=== PATIENT | female | born 1955 | race Caucasian/White ===

== ENCOUNTER 2018-05-22 10:39 | Inpatient (IN) ==
--- NOTE | 2018-05-22 15:29 | Internal Med History&Physical ---
Date of Encounter: 05/22/18 Time of Encounter: 15:15 Internal Medicine - H&P: HPI Chief complaint: Shortness of breath Admitted From: Home History of present illness: Ms. Moreno is a 63 year old female with past meidcal history of non wave Q IA, CHF, prior hx of PNA, current smoker 1/2PPD to 1PPD, COPD, chronic venous insufficiency, who presents with SOB and altered mental status. Pt is an overall poor historian. Unable to determine at this time if she has baseline dementia. Pt was initially evaluated at [facility]. She was brought in by her son. Pt states her son lives with her in her own home. HEr family was not present kduring my evaluation but they did report to the ED at [facility] that they had been trying to convince the patien to come to the hospital for about 2 -3 days. The patient had reported non-productive cough and had been complaining of progressive SOB. According to EMS who picked the pt up at home, pt was found in poor living conditions. The house was apparently extremely dirty and appeared unkept. Pt had to be given a bath by hospital staff. Pt denies fever but does report chills. Pt admits to nausea but denies vomiting. Nursing staff states pt is having frequent stools and her buttock is raw from runny diarrhea. Pt has been seen at wound clinic for chronic LE wounds but pt reports wound care center does not know about the wound on her buttock. Family reports that pt has been sitting on on the couch since Last tuesday, 05/16. Pt states she cannot lay falt in bed due to difficulty breathing. CODE STATUS: FULL but needs verified. At [facility] ED WBC 10.1, hgb 13.3, hct 43., plt 190. PT 13.7, INR 1.2. Na 131, K 5.3, CO2 31, glucose 95. Troponin 1.22 ABG PH 7.37, pCO2 49, pO2 63, HCO3 28, Oxygen saturation 91% CXR IMPRESSION: Bilateral airspace disease is suspicious for pneumonia. Past Med Surg Social Fam HX - Past Medical History Medical history: arthritis, cancer, COPD, GERD, hypertension, other Additional medical history: charcot Psychiatric history: anxiety - Past Surgical History Surgical History: angioplasty/stent, hysterectomy, other Additional surgical history: removal of melanoma, left breast tumor removal at age 12. heart cath - Social History Smoking Status: Current every day smoker Smokeless Tobacco Status: No Alcohol use: none Drug use: none - Family History Mother Family Member Ethnicity: Non- Living Status: Hx Family Cardiac Disorders: Yes Internal Medicine - H&P: Meds Albuterol Sulfate [Ventolin Hfa] 108 mcg IH Q6H PRN 10/09/15 [History] Aspirin Enteric Coated [Aspirin EC] 81 mg PO DAILY 10/09/15 [History] Calcium Carbonate/Vitamin D3 [Calcium 500 + D Tablet] 1 each PO BID 10/09/15 [ History] Furosemide [Lasix] 20 mg PO BIDDIURETIC 10/09/15 [History] Gabapentin [Neurontin] 100 mg PO TID 10/09/15 [History] Lisinopril [Zestril] 5 mg PO DAILY 10/09/15 [History] Loratadine [Claritin] 10 mg PO DAILY 10/09/15 [History] Lovastatin [Mevacor] 20 mg PO HS 10/09/15 [History] Metoprolol [Lopressor] 50 mg PO BID 10/09/15 [History] Montelukast [Singulair] 10 mg PO DAILY 10/09/15 [History] Multivitamin [Multi-Day Vitamins] 1 each PO DAILY 10/09/15 [History] Naproxen Sodium [Naproxen Sodium Cr] 375 mg PO BID 10/09/15 [History] Omeprazole [PriLOSEC] 20 mg PO DAILY 10/09/15 [History] Potassium Chloride [Klor-Con Sprinkle] 20 meq PO DAILY 10/09/15 [History] Tramadol HCl [Tramadol HCl ER] 50 mg PO TID PRN 10/09/15 [History] Nitroglycerin [Nitrostat] 0.4 mg SL AD 01/30/16 [History] 3 Allergy/AdvReac Type Severity Reaction Status Date / Time No Known Allergies Allergy Verified 05/22/18 08:39 All Systems PM: A 10-system review of systems was performed and is negative for pertinent findings except as documented above in the HPI. - Constitutional Vitals: Temp Pulse Resp BP Pulse Ox 97.5 F L 96 18 134/81 90 05/22/18 12:44 05/22/18 12:44 05/22/18 12:44 05/22/18 12:44 05/22/18 12:44 General appearance: Present: A&O X 2, morbidly obese - Head Head exam: Present: atraumatic, normocephalic - Eye Eye exam: Present: PERRL, conjuntiva pink, sclera anicteric Pupils: Present: PERRL - Neck Neck exam general surgery: Present: supple, trachea midline. Absent: lymphadenopathy - Respiratory Respiratory exam: Present: wheezes. Absent: accessory muscle use, rales, rhonchi Additional comments: expiratory wheezes B/L - Cardiovascular Cardiovascular exam: Present: RRR, +S1, +S2. Absent: diastolic murmur, gallop, rubs, systolic murmur - GI/Abdominal GI/Abdominal exam: Present: normal bowel sounds, soft, no peritoneal signs. Absent: distended, tenderness Additional comments: unable to adequately assess for organomegaly due to rotund abd - Extremities Exam Extremities exam: Present: pedal edema, warm, radial pulses palpable and symmetrical. Absent: calf tenderness, cyanotic - Neurological Exam Neurological exam: Present: CN II-XII intact, oriented X3, no focal deficits. Absent: pronater drift, facial droop, speech deficit - Skin Skin exam: Present: dry, intact - Assessment and plan (1) Bilateral pneumonia Current Visit: Yes Status: Acute Assessment and plan: Will place on Zithromax and Rocephin. Will check sputum culture if patient is able to give a sample. Chest x ray IMPRESSION: Bilateral airspace disease is suspicious for pneumonia. Qualifiers: Qualified Code(s): J18.9 - Pneumonia, unspecified organism (2) Elevated troponin Current Visit: Yes Status: Acute Assessment and plan: Will cycle troponin. Cse discussed with cardiology and agree with heparin for now. Qill review home meds when med rec completed. Daily ASA, prn Nitro, and oxygen for now. Will likely add beta channing and ASIA inhibitor if pt not currently on it. (3) CHF (congestive heart failure) Current Visit: No Status: Acute Assessment and plan: possibly in mild exacerbation as pt is reporting orthopnea and has increased B/ L LE edema. EF unknown at this time. Will check echo. Will give one time dose of Lasix. Will monitor fluid status Qualifiers: Qualified Code(s): I50.9 - Heart failure, unspecified (4) Hyperkalemia Current Visit: Yes Status: Acute Assessment and plan: ill recheck following administration of Lasix. Will monitor. (5) Hyponatremia Current Visit: Yes Status: Acute Assessment and plan: Will recheck and monitor. (6) Chronic venous hypertension with ulcer involving both sides Current Visit: No Status: Chronic Assessment and plan: Chronic venous stasis. Will consult wound care for help with management. (7) Decubitus ulcer of buttock, stage 2 Current Visit: No Status: Acute Assessment and plan: Wound care consult Qualifiers: Qualified Code(s): L89.302 - Pressure ulcer of unspecified buttock, stage 2 (8) Diarrhea Current Visit: Yes Status: Acute Assessment and plan: Significance unclear. Pt was apparently on stool softeners. Will hold softeners and send stool for C diff. Qualifiers: Qualified Code(s): R19.7 - Diarrhea, unspecified - Time Spent With Patient Total time spent is greater than 50% in coordination of care (as documented) at patient's floor/unit and/or counseling patient: 25 - 35 minutes
[2018-05-22] MEDS ORDERED: Furosemide 40 MG/4 ML VIAL IVP ONE (15:36)
[2018-05-22] MEDS ORDERED: *HR* Heparin 5,000 UNIT/ML VIAL IVP PRN (15:36)
[2018-05-22] MEDS ORDERED: *HR* Heparin 5,000 UNIT/ML VIAL IVP ONE (15:36)
[2018-05-22] MEDS ORDERED: Nitroglycerin 0.4 MG TAB.SUBL SL PRN (15:36)
[2018-05-22] MEDS ORDERED: Naloxone 0.4 MG/ML INJ IVP PRN (15:36)
[2018-05-22] MEDS ORDERED: Azithromycin 500 MG in D5% in Water 250 ML IVPB SCH (16:00)
[2018-05-22] MEDS: cefTRIAXone 1,000 MG in Water for inj. (sterile) 20 ML 10 ML IVP SCH (16:48)
[2018-05-22] MEDS: Heparin 25,000 UNIT/500 ML D5W 25,000 UNIT/500 ML BAG IVC SCH (16:52)
[2018-05-22 16:57] LABS: Albumin 3.1 g/dL (3.5-5.7); Albumin/Globulin Ratio 0.9 (1.1-2.2); Bilirubin,Direct 0.3 mg/dL (0.0-0.2); Bilirubin,Indirect 0.4 mg/dL (0.0-1.2); Bilirubin,Total 0.7 mg/dL (0.3-1.0); Globulin 3.6 g/dL (2.4-3.5); Magnesium 1.6 mg/dL (1.6-2.6); Total Protein 6.7 g/dL (6.4-8.9)
[2018-05-22 17:10] LABS: Thyroid Stimulating Hormone 1.569 mcIU/mL (0.340-5.600)
[2018-05-22] MEDS ORDERED: Ipratropium 1 PUFF INHALER IH PRN (18:06)
[2018-05-22 18:11] LABS: Estimated Average Glucose 131 mg/dl; Hemoglobin A1C 6.2 %
[2018-05-22] MEDS: Ipratropium/Albuterol Neb 3 ML IH SCH (23:11)
[2018-05-23] MEDS: *HR* Heparin 5,000 UNIT/ML VIAL IVP PRN (00:33)
[2018-05-23 01:38] LABS: ABG Base Excess 5 mEq/L (-2 to 3); ABG HCO3 34 mEq/L (21-27); ABG Oxygen Saturation 99 % (95-98); ABG PCO2 66 mmHg (35-45); ABG PH 7.32 pH Units (7.32-7.45); ABG PO2 136 mmHg (85-104); ABG TCO2 36 mEq/L (20-26)
[2018-05-23] MEDS: Ipratropium/Albuterol Neb 3 ML IH SCH ×4 (04:24→21:50)
[2018-05-23 06:29] LABS: Basophils % 0.2 %; Hematocrit 42.7 % (35.3-44.9); Hemoglobin 13.3 g/dL (11.5-15.4); Immature Granulocytes % 0.4 % (0-4); Lymphocytes # 0.7 K/mcL (0.6-4.6); Lymphocytes % 5.9 %; Mean Corpuscular HGB Conc 31.1 g/dL (31.6-35.5); Mean Corpuscular Hemoglobin 25.2 pg (28.0-33.3); Mean Corpuscular Volume 80.9 fL (83.0-100.0); Mean Platelet Volume 9.7 fL (9.4-12.4); Monocytes # 0.6 K/mcL (0.0-1.3); Monocytes % 5.4 %; Nucleated Red Blood Cells 0.2 /100 WBC (0); Platelet Count 159 K/mcL (140-400); Red Blood Count 5.28 M/mcL (3.82-4.97); Red Cell Distribution Width 19.7 % (11.5-14.5); Segmented Neutrophils % 88.1 %
[2018-05-23 06:54] LABS: BUN/Creatinine Ratio 21 (6-26); Blood Urea Nitrogen 19 mg/dL (8-23); Calcium 8.6 mg/dL (8.6-10.3); Carbon Dioxide 29 mEq/L (23-29); Chloride 97 mEq/L (98-107); Chol/HDL Ratio 2.9 (0-4.9); Cholesterol 84 mg/dL (< 200); Glucose 118 mg/dL (70-105); HDL Cholesterol 29 mg/dL (40-59); LDL Cholesterol,Calculated 40 mg/dL (0-99); Osmolality,Calculated 279 (280-300); Potassium 4.3 mEq/L (3.5-5.1); Sodium 133 mEq/L (136-145); Triglycerides 75 mg/dL (< 150); eGFR For Non-African Americans > 60 (> 60)
[2018-05-23] MEDS ORDERED: cefTRIAXone 1,000 MG in Water for inj. (sterile) 20 ML 10 ML IVP SCH (09:00)
[2018-05-23] MEDS ORDERED: Perflutren Lipid Microsphere 1.3 ML in 0.9 % Sodium Chloride 8.7 ML IVP ONE (09:40)
--- NOTE | 2018-05-23 09:46 | Cardiology Consult Note ---
Date of Encounter: 05/23/18 Time of Encounter: 09:00 Assessment and Plan (1) Elevated troponin Current Visit: Yes Status: Acute Peak troponin 1.43 with downward trend in the setting of bilateral PNA and possible sepsis. NSTEMI I vs. II. No ischemic ECG changes noted. Presently not a candidate for [facility] due to mental status--bipap dependent, minimally responsive. Continue heparin gtt for at least 48 hours; add statin, asa, and BB. Check echocardiogram. Not presently a candidate for cardiac rehab. Will continue to follow. (2) Chronic venous hypertension with ulcer involving both sides Current Visit: Yes Status: Chronic (3) Bilateral pneumonia Current Visit: Yes Status: Acute On IV atb, mgmt per hospitalist. Qualifiers: Pneumonia type: due to unspecified organism Lung location: unspecified part of lung Qualified Code(s): J18.9 - Pneumonia, unspecified organism Discussion w patient/family: The assessment and plan as outlined above was discussed with the patient and/or family members who expressed understanding and agreement. All questions were answered. Thank you for involving us in the care of your patient. Please call with any questions. The patient will be discussed and reviewed with Dr. Carlisle; changes to be made accordingly. History of Present Illness Consult date: 05/23/18 Requesting physician: Crystal Ernst Consult reason: Elevated troponin Chief complaint: AMS History of present illness: Ms. Moreno is a 63 year old female with PMHx significant of NC without intervention, tobacco abuse, COPD, MANSO[place], and Charcot-andres tooth disease who presented to [facility] as transfer from [place] ED due to reported AMS. Unable to obtain HPI or PMH due to patient mental status, currently Bipap dependent. Information obtained from eCW, ED records, and bedside RN. Reportedly patient had been on the couch since Tuesday and not moving well so family called EMS. Per H&P, patient resides in very poor living conditions and was dirty and unkept upon arrival. She is noted to have chronic non-healing wounds to bilateral lower extremities--follows wound care as outpatient. Per bedside RN, patient has 15+ decubitis ulcers on coccyx. Prior CV testing: [facility] 2003: minimal, non-obstructive CAD TTE 01/2014: LVEF 60%, mild LVDD, mild-moderate MN, moderate PH, mild segmental LV systolic dysfunction (apical inferior, mid inferior, basal inferior , and mid inferior lateral smith were hypokinetic) Past Med Surg Social Fam HX - Past Medical History Attestation: Yes The following information was validated with the patient. Source: patient Medical history: arthritis, cancer, COPD, GERD, hypertension Additional medical history: charcot Psychiatric history: anxiety - Past Surgical History Surgical History: hysterectomy, other Additional surgical history: removal of melanoma, left breast tumor removal at age 12. heart cath - Social History Smoking Status: Current every day smoker Smokeless Tobacco Status: No Alcohol use: none Drug use: none - Family History Mother Family Member Ethnicity: Non- Living Status: Hx Family Cardiac Disorders: Yes Medications and Allergies Albuterol Sulfate [Ventolin Hfa] 108 mcg IH Q6H PRN 10/09/15 [History] Aspirin Enteric Coated [Aspirin EC] 81 mg PO DAILY 10/09/15 [History] Calcium Carbonate/Vitamin D3 [Calcium 500 + D Tablet] 1 each PO BID 10/09/15 [ History] Gabapentin [Neurontin] 100 mg PO TID 10/09/15 [History] Lisinopril [Zestril] 5 mg PO DAILY 10/09/15 [History] Loratadine [Claritin] 10 mg PO DAILY 10/09/15 [History] Lovastatin [Mevacor] 20 mg PO HS 10/09/15 [History] Metoprolol [Lopressor] 50 mg PO BID 10/09/15 [History] Montelukast [Singulair] 10 mg PO DAILY 10/09/15 [History] Multivitamin [Multi-Day Vitamins] 1 each PO DAILY 10/09/15 [History] Naproxen Sodium [Naproxen Sodium Cr] 375 mg PO BID 10/09/15 [History] Omeprazole [PriLOSEC] 20 mg PO DAILY 10/09/15 [History] Potassium Chloride [Klor-Con Sprinkle] 20 meq PO DAILY 10/09/15 [History] Nitroglycerin [Nitrostat] 0.4 mg SL AD 01/30/16 [History] Bumetanide [Bumetanide] 0.5 mg PO BID 05/23/18 [History] Furosemide [Lasix] 40 mg PO DAILY 05/23/18 [History] Tiotropium Cecilia [Spiriva Respimat] 2 puff IH DAILY 05/23/18 [History] Tramadol HCl [Ultram] 50 mg PO TID PRN 05/23/18 [History] 3 Allergy/AdvReac Type Severity Reaction Status Date / Time No Known Allergies Allergy Verified 05/22/18 08:39 All Systems Review: The remainder of the systems were reviewed and are negative - Cardiovascular Cardiovascular: as per HPI Physical Examination Vital Signs, Last 4 Hours Temp Pulse Resp BP Pulse Ox 05/23/18 07:25 98.3 F 77 16 118/80 94 General: Other (minimal responsive) HEENT: Atraumatic, Normocephaly Cardiac: Reg Rate and Rhythm, Normal S1 and S2 Lungs: Other (coarse/wheezes--anterior only) Neuro: Other (minimally responsive, on bipap) Abdomen: Soft Extremities: Other (multiple wounds on bilateral lower extremities--open/redness /+3 edema. ) Other: reported (did not observe) x15 + sacral decubitis ulcer Results 05/23/18 06:17 05/23/18 06:17 Lab Results 05/22/18 05/22/18 05/22/18 16:05 16:05 22:28 WBC Hgb Hct Plt Count Sodium Potassium Chloride Carbon Dioxide BUN Creatinine Glucose Calcium Magnesium 1.6 Total Bilirubin 0.7 AST 25 ALT 19 Alkaline Phosphatase 89 Troponin I 1.43 H* 1.18 H* TSH 1.569 05/23/18 05/23/18 05/23/18 06:17 06:17 06:17 WBC 11.4 H Hgb 13.3 Hct 42.7 Plt Count 159 Sodium 133 L Potassium 4.3 Chloride 97 L Carbon Dioxide 29 BUN 19 Creatinine 0.92 Glucose 118 H Calcium 8.6 Magnesium Total Bilirubin AST ALT Alkaline Phosphatase Troponin I 0.87 H* TSH Active Medications Acetaminophen (Tylenol) 500 mg PO Q6HR PRN PRN Reason: Mild Pain Stop: 11/21/18 15:37 Albuterol/Ipratropium (Duoneb) 3 ml IH QIDR [facility] Stop: 11/21/18 23:01 Last Admin: 05/23/18 04:24 Dose: 3 ml Aspirin (Aspirin) 81 mg PO DAILY [facility] Stop: 11/22/18 09:01 Last Admin: 05/23/18 09:56 Dose: 81 mg Heparin Sodium (Porcine) (Heparin) 4,000 unit IVP Q6HR PRN PRN Reason: SEE COMMENTS Stop: 11/21/18 15:37 Heparin Sodium (Porcine) (Heparin) 2,000 unit IVP Q6H PRN PRN Reason: SEE COMMENTS Stop: 11/21/18 15:37 Last Admin: 05/23/18 00:33 Dose: 2,000 unit Heparin Sodium/Dextrose (Heparin 25,000 Unit/500 Ml D5w) 25,000 unit in 500 mls @ 19.432 mls/hr IVC .Q24H ROSA; 7 UNIT/KG/HR PRN Reason: Protocol Stop: 11/21/18 15:46 Last Titration: 05/23/18 06:41 Dose: 9 unit/kg/hr, 24.984 mls/hr Azithromycin 500 mg/ Dextrose 250 mls @ 252 mls/hr IVPB Q24H [facility]A Stop: 11/22/18 12:01 Ceftriaxone Sodium 1,000 mg/ (Sterile Water) 10 mls @ 600 mls/hr IVP Q24H [facility] Stop: 11/21/18 13:01 Last Infusion: 05/22/18 16:53 Dose: Infused Ipratropium Cecilia (Atrovent Inhaler) 2 puff IH Q2HR PRN PRN Reason: Shortness Of Breath/Wheezing Stop: 11/21/18 18:07 Naloxone HCl (Narcan) 0.4 mg IVP Q2MIN PRN PRN Reason: SEE COMMENTS Stop: 11/21/18 15:37 Nicotine (Nicoderm) 21 mg TD DAILY ROSA PRN Reason: Protocol Stop: 11/22/18 09:01 Last Admin: 05/23/18 09:57 Dose: 21 mg Nitroglycerin (Nitroglycerin) 0.4 mg SL Q5MIN PRN PRN Reason: Chest Pain Stop: 11/21/18 15:37 Prednisone (Prednisone) 40 mg PO DAILY [facility] Stop: 11/22/18 09:01 Last Admin: 05/23/18 09:56 Dose: 40 mg - Imaging and Cardiology Echo: report reviewed Cardiac cath: report reviewed Other Results: 12 hour tele: avg HR 83 SR. - EKG Interpretation EKG results cardiology: personally reviewed Consult Discharge Plan - Plan Referrals: Isatu Shultz, JOEY [Primary Care Provider] -
[2018-05-23] MEDS: Aspirin 81 MG TAB.CHEW PO SCH (09:56)
[2018-05-23] MEDS: predniSONE 20 MG TABLET PO SCH (09:56)
[2018-05-23] MEDS: Nicotine 21 MG PATCH.TD24 TD SCH (09:57)
[2018-05-23] MEDS ORDERED: Furosemide 20 MG/2 ML VIAL IVP SCH (12:15)
[2018-05-23] MEDS: Azithromycin 500 MG in D5% in Water 250 ML IVPB SCH (12:25)
[2018-05-23] MEDS: cefTRIAXone 1,000 MG in Water for inj. (sterile) 20 ML 10 ML IVP SCH (12:26)
[2018-05-23] MEDS ORDERED: Isovue-370 500 ML INFUS..BTL IV ONE (12:32)
--- NOTE | 2018-05-23 13:28 | Event Note ---
Date of Encounter: 05/23/18 Time of Encounter: 13:00 - Cardiology Event Note Reviewed TTE results with Dr. Pace (see below). Given RV dilation and RV pressure overload, recommend CTA to r/o PE. High clinical suspicion given presenting symptoms. Continue heparin gtt for now. Discussed and reviewed with Dr. Peters (primary service) who will order CTA and f /u with results. Echocardiogram 05/23/18 15:36 Impressions: Technically challenging due to body habitus and clinical status. LVEF 60-65%. Definity echo contrast was used. Atypical septal motion - D shaped septum in early diastole. Mild left ventricular diastolic dysfunction. RV is moderately dilated in size and visually hypokinetic but is not optimally seen in the apical windows. TD velocities are normal. D-shaped septum suggests the presence of RV pressure overload. Moderate tricuspid regurgitation based on spectral Doppler. Mild pulmonic regurgitation. Estimated RVSP is 72 mmHg. Severe pulmonary hypertension. The IVC is dilated. Recommend clinical correlation. Left Ventricular Wall Motion: Rest Echo Findings All wall segments showed normal motion. Findings: Study Quality * Technically challenging due to body habitus and clinical status. ECG Findings * Sinus rhythm with possible BBB. Left Ventricle * LVEF 60-65%. * Atypical septal motion - D shaped septum in early diastole. * Mild left ventricular diastolic dysfunction. * There is no LV thrombus. * Definity echo contrast was used. Right Ventricle * RV is moderately dilated in size and visually hypokinetic but is not optimally seen in the apical windows. TD velocities are normal. Left Atrium * Mildly dilated left atrium, possibly underestimated. Right Atrium * Moderate to severely dilated right atrium. Aortic Valve * No aortic regurgitation. * Aortic valve not well visualized. * No aortic stenosis. Mitral Valve * Trace mitral regurgitation. * Normal mitral valve structure. * No mitral stenosis. Tricuspid Valve * Normal tricuspid valve structure. * Estimated RA pressure is 8 mmHg. * Estimated RVSP is 72 mmHg. * Severe pulmonary hypertension. * Moderate tricuspid regurgitation based on spectral Doppler; color flow imaging not optimally visualized. Pulmonic Valve * Pulmonic valve is not well visualized. * No pulmonic stenosis. * Mild pulmonic regurgitation. Pulmonary Artery * Pulmonary artery not well visualized. Aorta * Normally sized aortic root. Pericardium * There is no pericardial effusion present. Interatrial Septum * No evidence of PFO by color Doppler. IVC * The IVC is dilated. * > 50% respiratory change
--- NOTE | 2018-05-23 14:35 | Internal Med Progress Note ---
<Gray Ornelas - Last Filed: 05/23/18 16:20> Hospitalist Progress Note - Encounter Date of Encounter: 05/23/18 Time of Encounter: 09:30 - Subjective Interval History: 63 y/o female with a PMHx of CA, CHF with EF of 60% in 2013, prior hx of PNA, current .5-1 PPD smoker, COPD, chronic venous insufficiency who presented to [facility] on 05/22 with SOB and altered mental status. Nurse states patient became unresponsive overnight and was started on BIPAP and an ABG was ordered. Today patient is obtunded and very difficult to arouse. She admits to a productive cough, but I was unable to illicit any other info from patient. - Exam Vitals: Temp Pulse Resp BP Pulse Ox 98.8 F 87 16 121/78 95 05/23/18 11:19 05/23/18 11:19 05/23/18 11:19 05/23/18 11:19 05/23/18 11:19 Exam: GEN - Ill appearing, obtunded, obese female on BIPAP SKIN - erythematous lower extremities, sacral decubitus ulcerations present HEENT - normocephalic NECK - no lymphadenopathy CV - RRR, no JVD RESP - diminished lung sounds, wheezes present bilaterally, no clubbing GI - BSx4, no organomegaly, soft VASC - palpable radial and dorsalis pedis pulses, bilateral erythematous pitting lower extremity edema with ulcerations - Assessment and Plan (1) Acute respiratory failure Current Visit: Yes Status: Acute Assessment and Plan: Secondary to acute pneumonia vs CHF. Patient is improving and not in respiratory distress on BIPAP so will wean off, and only use at night if needed. Will start patient on 3L NC for now. (2) Bilateral pneumonia Current Visit: Yes Status: Acute Assessment and Plan: Currently on Rocephin and Azithromycin Will get sputum cultures when able (3) Elevated troponin Current Visit: Yes Status: Acute Assessment and Plan: Patient had elevated troponins x4 Likely secondary to CHF exacerbation vs NSTEMI vs bilateral pneumonia Cardiology on consult Patient on heparin drip, aspirin, O2 (4) CHF exacerbation Current Visit: Yes Status: Acute Assessment and Plan: Patient has marked bilateral LE pitting edema EF was 60-65% (05/23/18) Patient to have CTA Patient started on lasix 20 mg daily (5) Hyponatremia Current Visit: Yes Status: Acute Assessment and Plan: Na 133 Will continue to monitor with daily BMPs (6) Chronic venous insufficiency Current Visit: Yes Status: Chronic Assessment and Plan: Patient has bilateral erythematous pitting edema of LE with ulcerations Wound care on consult (7) Decubital ulcer Current Visit: Yes Status: Chronic Assessment and Plan: Patient sees wound care as outpatient Will consult wound care inpatient DVT Prophylaxis: Subcutaneous heparin - Time Spent with Patient Total time spent is greater than 50% in coordination of care (as documented) at patient's floor/unit and/or counseling patient: 25 - 35 minutes Plan of Care Discussed with: nurse Internal Medicine: Result - Labs CBC & Chem 7: 05/23/18 06:17 05/23/18 06:17 Labs: Short CBC 05/23/18 Range/Units 06:17 WBC 11.4 H (4.3-11.1) K/mcL Hgb 13.3 (11.5-15.4) g/dL Hct 42.7 (35.3-44.9) % Plt Count 159 (140-400) K/mcL Neutrophils # 10.0 H (1.6-8.9) K/mcL BMP 05/23/18 06:17 Sodium 133 L Potassium 4.3 Chloride 97 L Carbon Dioxide 29 BUN 19 Creatinine 0.92 Glucose 118 H Calcium 8.6 Cardiac Enzymes 05/22/18 05/22/18 05/23/18 Range/Units 16:05 22:28 06:17 Troponin I 1.43 H* 1.18 H* 0.87 H* (< 0.04) ng/mL Liver Function 05/22/18 Range/Units 16:05 Total Bilirubin 0.7 (0.3-1.0) mg/dL Direct Bilirubin 0.3 H (0.0-0.2) mg/dL AST 25 (13-39) Units/L ALT 19 (7-52) Units/L Alkaline Phosphatase 89 (34-104) Units/L Albumin 3.1 L (3.5-5.7) g/dL - ABG Interpretation ABG results: ABG ABG pH 7.32 pH Units (7.32-7.45) 05/23/18 01:31 ABG pCO2 66 mmHg (35-45) H 05/23/18 01:31 ABG pO2 136 mmHg (85-104) H 05/23/18 01:31 ABG O2 Saturation 99 % (95-98) H 05/23/18 01:31 - Impressions Impressions Echocardiogram 05/23/18 15:36 Impressions: Technically challenging due to body habitus and clinical status. LVEF 60-65%. Definity echo contrast was used. Atypical septal motion - D shaped septum in early diastole. Mild left ventricular diastolic dysfunction. RV is moderately dilated in size and visually hypokinetic but is not optimally seen in the apical windows. TD velocities are normal. D-shaped septum suggests the presence of RV pressure overload. Moderate tricuspid regurgitation based on spectral Doppler. Mild pulmonic regurgitation. Estimated RVSP is 72 mmHg. Severe pulmonary hypertension. The IVC is dilated. Recommend clinical correlation. Left Ventricular Wall Motion: Rest Echo Findings All wall segments showed normal motion. Findings: Study Quality * Technically challenging due to body habitus and clinical status. ECG Findings * Sinus rhythm with possible BBB. Left Ventricle * LVEF 60-65%. * Atypical septal motion - D shaped septum in early diastole. * Mild left ventricular diastolic dysfunction. * There is no LV thrombus. * Definity echo contrast was used. Right Ventricle * RV is moderately dilated in size and visually hypokinetic but is not optimally seen in the apical windows. TD velocities are normal. Left Atrium * Mildly dilated left atrium, possibly underestimated. Right Atrium * Moderate to severely dilated right atrium. Aortic Valve * No aortic regurgitation. * Aortic valve not well visualized. * No aortic stenosis. Mitral Valve * Trace mitral regurgitation. * Normal mitral valve structure. * No mitral stenosis. Tricuspid Valve * Normal tricuspid valve structure. * Estimated RA pressure is 8 mmHg. * Estimated RVSP is 72 mmHg. * Severe pulmonary hypertension. * Moderate tricuspid regurgitation based on spectral Doppler; color flow imaging not optimally visualized. Pulmonic Valve * Pulmonic valve is not well visualized. * No pulmonic stenosis. * Mild pulmonic regurgitation. Pulmonary Artery * Pulmonary artery not well visualized. Aorta * Normally sized aortic root. Pericardium * There is no pericardial effusion present. Interatrial Septum * No evidence of PFO by color Doppler. IVC * The IVC is dilated. * > 50% respiratory change Consult Discharge Plan - Plan Referrals: Isatu Shultz, JOEY [Primary Care Provider] - <Marylin Peters - Last Filed: 05/23/18 17:29> Hospitalist Progress Note - Encounter Date of Encounter: 05/23/18 - Exam Vitals: Temp Pulse Resp BP Pulse Ox 97.4 F L 85 18 120/80 94 05/23/18 15:52 05/23/18 15:52 05/23/18 15:52 05/23/18 15:52 05/23/18 15:52 - Time Spent with Patient Total time spent is greater than 50% in coordination of care (as documented) at patient's floor/unit and/or counseling patient: Internal Medicine: Result - Labs CBC & Chem 7: 05/23/18 06:17 05/23/18 06:17 Labs: Short CBC 05/23/18 Range/Units 06:17 WBC 11.4 H (4.3-11.1) K/mcL Hgb 13.3 (11.5-15.4) g/dL Hct 42.7 (35.3-44.9) % Plt Count 159 (140-400) K/mcL Neutrophils # 10.0 H (1.6-8.9) K/mcL BMP 05/23/18 06:17 Sodium 133 L Potassium 4.3 Chloride 97 L Carbon Dioxide 29 BUN 19 Creatinine 0.92 Glucose 118 H Calcium 8.6 Cardiac Enzymes 05/22/18 05/22/18 05/23/18 Range/Units 16:05 22:28 06:17 Troponin I 1.43 H* 1.18 H* 0.87 H* (< 0.04) ng/mL - ABG Interpretation ABG results: ABG ABG pH 7.32 pH Units (7.32-7.45) 05/23/18 01:31 ABG pCO2 66 mmHg (35-45) H 05/23/18 01:31 ABG pO2 136 mmHg (85-104) H 05/23/18 01:31 ABG O2 Saturation 99 % (95-98) H 05/23/18 01:31 - Impressions Impressions Echocardiogram 05/23/18 15:36 Impressions: Technically challenging due to body habitus and clinical status. LVEF 60-65%. Definity echo contrast was used. Atypical septal motion - D shaped septum in early diastole. Mild left ventricular diastolic dysfunction. RV is moderately dilated in size and visually hypokinetic but is not optimally seen in the apical windows. TD velocities are normal. D-shaped septum suggests the presence of RV pressure overload. Moderate tricuspid regurgitation based on spectral Doppler. Mild pulmonic regurgitation. Estimated RVSP is 72 mmHg. Severe pulmonary hypertension. The IVC is dilated. Recommend clinical correlation. Left Ventricular Wall Motion: Rest Echo Findings All wall segments showed normal motion. Findings: Study Quality * Technically challenging due to body habitus and clinical status. ECG Findings * Sinus rhythm with possible BBB. Left Ventricle * LVEF 60-65%. * Atypical septal motion - D shaped septum in early diastole. * Mild left ventricular diastolic dysfunction. * There is no LV thrombus. * Definity echo contrast was used. Right Ventricle * RV is moderately dilated in size and visually hypokinetic but is not optimally seen in the apical windows. TD velocities are normal. Left Atrium * Mildly dilated left atrium, possibly underestimated. Right Atrium * Moderate to severely dilated right atrium. Aortic Valve * No aortic regurgitation. * Aortic valve not well visualized. * No aortic stenosis. Mitral Valve * Trace mitral regurgitation. * Normal mitral valve structure. * No mitral stenosis. Tricuspid Valve * Normal tricuspid valve structure. * Estimated RA pressure is 8 mmHg. * Estimated RVSP is 72 mmHg. * Severe pulmonary hypertension. * Moderate tricuspid regurgitation based on spectral Doppler; color flow imaging not optimally visualized. Pulmonic Valve * Pulmonic valve is not well visualized. * No pulmonic stenosis. * Mild pulmonic regurgitation. Pulmonary Artery * Pulmonary artery not well visualized. Aorta * Normally sized aortic root. Pericardium * There is no pericardial effusion present. Interatrial Septum * No evidence of PFO by color Doppler. IVC * The IVC is dilated. * > 50% respiratory change - Attending Attestation I have seen and examined this patient independently. I have discussed with resident physician Dr. Ornelas regarding the management plan. Agree with the documentation. Severe pulmonary hypertension: Per Echo, will consult pulmonology for further management. <JohnsonGray S - Last Filed: 05/23/18 16:20> (1) Acute respiratory failure Qualifiers: Respiratory failure complication: hypercapnia Qualified Code(s): J96.02 - Acute respiratory failure with hypercapnia (2) Bilateral pneumonia Qualifiers: Pneumonia type: due to unspecified organism Lung location: unspecified part of lung Qualified Code(s): J18.9 - Pneumonia, unspecified organism (7) Decubital ulcer Qualifiers: Pressure injury location: buttock Pressure injury stage: unspecified pressure injury stage
[2018-05-23 21:44] LABS: ABG Base Excess 7 mEq/L (-2 to 3); ABG HCO3 36 mEq/L (21-27); ABG Oxygen Saturation 97 % (95-98); ABG PCO2 73 mmHg (35-45); ABG PH 7.31 pH Units (7.32-7.45); ABG PO2 104 mmHg (85-104); ABG TCO2 38 mEq/L (20-26)
[2018-05-24 01:41] LABS: Bacteria,Urine None Seen per hpf (None-Few); Bilirubin,Urine Negative (Negative); Blood,Urine Small (Negative); Clarity,Urine Cloudy (Clear); Color,Urine Yellow (Yellow); Glucose,Urine (UA) Normal (Normal); Hyaline Casts,Urine Few per lpf (None-Few); Ketones,Urine Negative (Negative); Leukocyte Esterase,Urine Moderate (Negative); Nitrite,Urine Negative (Negative); Protein,Urine Negative (Neg-Trace); Specific Gravity,Urine 1.015 (1.010-1.025); Squamous Epithelial Cell,Urine Few per lpf (None-Few); Urobilinogen,Urine Normal (Normal); WBC,Urine TNTC per hpf (0-3)
[2018-05-24 01:56] LABS: Yeast,Urine Few per hpf (None Seen)
[2018-05-24] MEDS: Ipratropium/Albuterol Neb 3 ML IH SCH ×4 (04:06→22:21)
[2018-05-24 05:04] LABS: Basophils % 0.1 %; Eosinophils % 0.1 %; Hematocrit 41.9 % (35.3-44.9); Hemoglobin 12.8 g/dL (11.5-15.4); Immature Granulocytes % 0.6 % (0-4); Lymphocytes # 1.4 K/mcL (0.6-4.6); Lymphocytes % 11.1 %; Mean Corpuscular HGB Conc 30.5 g/dL (31.6-35.5); Mean Corpuscular Hemoglobin 25.2 pg (28.0-33.3); Mean Corpuscular Volume 82.5 fL (83.0-100.0); Mean Platelet Volume 9.8 fL (9.4-12.4); Monocytes % 7.7 %; Platelet Count 171 K/mcL (140-400); Red Blood Count 5.08 M/mcL (3.82-4.97); Red Cell Distribution Width 19.5 % (11.5-14.5); Segmented Neutrophils % 80.4 %
[2018-05-24 05:23] LABS: BUN/Creatinine Ratio 21 (6-26); Blood Urea Nitrogen 17 mg/dL (8-23); Calcium 8.3 mg/dL (8.6-10.3); Carbon Dioxide 34 mEq/L (23-29); Chloride 94 mEq/L (98-107); Glucose 97 mg/dL (70-105); Osmolality,Calculated 277 (280-300); Potassium 4.4 mEq/L (3.5-5.1); Sodium 133 mEq/L (136-145); eGFR For Non-African Americans > 60 (> 60)
--- NOTE | 2018-05-24 09:08 | Pulmonology Consult Note ---
<Toribio Wakefield - Last Filed: 05/24/18 10:39> Date of Encounter: 05/24/18 Time of Encounter: 09:35 Assessment and Plan (1) Acute on chronic respiratory failure with hypoxia and hypercapnia Current Visit: Yes Status: Acute Acute on chronic respiratory failure with hypoxia and hypercapnia in the setting of severe pulmonary hypertension Acute failure likely secondary to acute volume overload status vs possible aspiration. PE is also possible Chronic respiratory failure likely multifactorial, COPD + obesity hypoventilation + deconditioning associated with charcot-andres tooth CXR shows mild blunting of the costophrenic angles with b/l consolidations suspicious for pneumonia ABG 05/23 7.31/7/104/97% on BiPAP 35% FiO2 Home meds include Spiriva + albuterol Recommendations -Agree with lasix for fluid overload -Agree with rocephin and azithromycin at this time -CTA of the chest is appropriate -We will start the patient on Symbicort, discontinue atrovent -Recommend qualification for home O2 and noninvasive ventilation -Patient will need workup for MANSOOR and PFTs as outpatient, recommend pulm follow- up (2) Pulmonary hypertension Current Visit: Yes Status: Acute Severe pulmonary hypertension noted on TTE Atypical septal motion - D shaped septum in early diastole. Mild left ventricular diastolic dysfunction. RV is moderately dilated in size and visually hypokinetic but is not optimally seen in the apical windows. TD velocities are normal. D-shaped septum suggests the presence of RV pressure overload. Moderate tricuspid regurgitation based on spectral Doppler. Estimated RVSP is 72 mmHg. Severe pulmonary hypertension Given comorbidities, body habitus, and hemodynamic status it is suspected that this is a Group 3 Pulmonary hypertension secondary to chronic lung disease Pulmonary hypertension may contribute to patient's baseline dyspnea Rule out of acute vs chronic VTE with CTA Chest as cause is reasonable, however patient initially refused due to back pain Alternatively, if the patient remains unable to lie on table, b/l LE duplex US is reasonable Optimally, VQ scan is test of choice for chronic VTE, however patient does not have appropriate imaging quality to benefit from VQ scan at this time Recommendations -Proceed with CTA Chest if tolerated, B/L LE Doppler US if not -Continue anticoagulation pending results -treat underlying lung disease as above History of Present Illness Consult date: 05/24/18 Requesting physician: Marylin Peters Reason for consult: pulmonary hypertension Chief complaint: Shortness of breath History of present illness: Ms. Melvin this 63-year-old woman with history of COPD, GERD, hypertension, melanoma and Zvuxqur-Mzlok-Wqgbl disease who presented to [facility] from [facility]. She apparently presented with shortness of breath and altered mental status. The patient is a relatively poor historian and does not seem to remember the specific contacts under which she entered the hospital , so some of this information is pulled from previous records. According to her chart, the patient presented with shortness of breath and altered mental status along with some lethargy for approximately 3 days duration. Her family was concerned because this was worse than she previously had been. Additionally , they found the patient's house in disarray more so than previously. Upon speaking with the patient, she says that she does have a baseline shortness of breath but does not feel that she had any worsening shortness of breath on this admission. She says that in general she does have a baseline cough with production of sputum, but she does not remember any specific episode that was acute febrile her to the hospital. Instead, she insists that the reason that she presented to the hospital was because of wounds associated with sacral ulcers which have been painful and bothersome to her. 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 She does say that she is able to be fairly active on her own or wheeling herself around her house with some help. She does not use any oxygen at home nor does she use BiPAP, however she does take inhalers on a daily basis for COPD. She denies any chest pain, diaphoresis, rapid heart rate. Upon questioning, the patient does deny any recent travel history, surgeries, treated cancers, hormonal treatment. She does admit to smoking about half a pack a day. She denies leg swelling any different than previous. She otherwise has no acute complaints at this time. Past Med Surg Social Fam HX - Past Medical History Medical history: arthritis, cancer, COPD, GERD, hypertension Additional medical history: charcot Psychiatric history: anxiety - Past Surgical History Surgical History: hysterectomy, other Additional surgical history: removal of melanoma, left breast tumor removal at age 12. heart cath - Social History Smoking Status: Current every day smoker Smokeless Tobacco Status: No Alcohol use: none Drug use: none - Family History Mother Family Member Ethnicity: Non- Living Status: Hx Family Cardiac Disorders: Yes Medications and Allergies Albuterol Sulfate [Ventolin Hfa] 108 mcg IH Q6H PRN 10/09/15 [History] Aspirin Enteric Coated [Aspirin EC] 81 mg PO DAILY 10/09/15 [History] Calcium Carbonate/Vitamin D3 [Calcium 500 + D Tablet] 1 each PO BID 10/09/15 [ History] Gabapentin [Neurontin] 100 mg PO TID 10/09/15 [History] Lisinopril [Zestril] 5 mg PO DAILY 10/09/15 [History] Loratadine [Claritin] 10 mg PO DAILY 10/09/15 [History] Lovastatin [Mevacor] 20 mg PO HS 10/09/15 [History] Metoprolol [Lopressor] 50 mg PO BID 10/09/15 [History] Montelukast [Singulair] 10 mg PO DAILY 10/09/15 [History] Multivitamin [Multi-Day Vitamins] 1 each PO DAILY 10/09/15 [History] Naproxen Sodium [Naproxen Sodium Cr] 375 mg PO BID 10/09/15 [History] Omeprazole [PriLOSEC] 20 mg PO DAILY 10/09/15 [History] Potassium Chloride [Klor-Con Sprinkle] 20 meq PO DAILY 10/09/15 [History] Nitroglycerin [Nitrostat] 0.4 mg SL AD 01/30/16 [History] Bumetanide [Bumetanide] 0.5 mg PO BID 05/23/18 [History] Furosemide [Lasix] 40 mg PO DAILY 05/23/18 [History] Tiotropium [place] [Spiriva Respimat] 2 puff IH DAILY 05/23/18 [History] Tramadol HCl [Ultram] 50 mg PO TID PRN 05/23/18 [History] 3 Allergy/AdvReac Type Severity Reaction Status Date / Time No Known Allergies Allergy Verified 05/22/18 08:39 All Systems: The remainder of the systems were reviewed and are negative Review of Systems: Constitutional: Denies fevers, chills, weight loss, generalized fatigue Head/Neck: Denies MCCLENDON, neck stiffness EENT: Denies vision changes/blurriness, rhinorrhea, congestion, sore throat CVS: Denies chest pain, palpitations, SHEPARD, orthopnea, edema, PND Pulm: Admis to SOB, chronic cough GI: Denies abdominal pain, nausea, vomiting, diarrhea, constipation, melena, hematemasis : Denies dysuria, increased frequency, urgency, hematuria Heme: Denies ease of bleeding or bruising MSK: Denies joint pain, limited ROM Skin: Admits to painful sacral debubitus ulcers, rash in legs Neuro: Denies MCCLENDON, paresthesias, focal deficits, ataxia Physical Examination Vital Signs: Vital Signs, Last 4 Hours Temp Pulse Resp BP Pulse Ox 05/24/18 06:56 98.1 F 74 20 118/78 99 05/24/18 05:50 97.9 F 74 20 118/72 99 Gen: Vitals noted. No acute distress. HEENT: Normocephalic, atraumatic Neck: Supple. No adenopathy. Cardiac: RRR, no murmur, +S1/S2 Pulmonary: Technically challenging exam secondary to size and unwillingness to cooperate. No obvious rales, rhonchi. Mildly diminished bibasilarly. Abdomen: soft, nontender, no guarding MSK: ROM intact, no joint swelling noted Extremities: 2-3+ LE edema that is not pitting, erythema and plaques consistent with chronic stasis ulceration Neuro: moves all extremities, no focal deficits. A&Ox3 Psych: Appropriate mood and behavior Results - Laboratory Findings CBC and BMP: 05/24/18 04:36 05/24/18 04:36 ABG ABG pH 7.31 pH Units (7.32-7.45) L 05/23/18 21:32 ABG pCO2 73 mmHg (35-45) H* 05/23/18 21:32 ABG pO2 104 mmHg (85-104) 05/23/18 21:32 ABG O2 Saturation 97 % (95-98) 05/23/18 21:32 Abnormal lab findings: Abnormal lab results WBC 12.5 K/mcL (4.3-11.1) H 05/24/18 04:36 RBC 5.08 M/mcL (3.82-4.97) H 05/24/18 04:36 MCV 82.5 fL (83.0-100.0) L 05/24/18 04:36 MCH 25.2 pg (28.0-33.3) L 05/24/18 04:36 MCHC 30.5 g/dL (31.6-35.5) L 05/24/18 04:36 RDW 19.5 % (11.5-14.5) H 05/24/18 04:36 Neutrophils # 10.0 K/mcL (1.6-8.9) H 05/24/18 04:36 Nucleated RBCs/100 WBC 0.2 /100 WBC (0) H 05/23/18 06:17 ABG pH 7.31 pH Units (7.32-7.45) L 05/23/18 21:32 ABG pCO2 73 mmHg (35-45) H* 05/23/18 21:32 ABG HCO3 36 mEq/L (21-27) H 05/23/18 21:32 ABG Total CO2 38 mEq/L (20-26) H 05/23/18 21:32 ABG Base Excess 7 mEq/L (-2 to 3) H 05/23/18 21:32 Sodium 133 mEq/L (136-145) L 05/24/18 04:36 Chloride 94 mEq/L (98-107) L 05/24/18 04:36 Carbon Dioxide 34 mEq/L (23-29) H 05/24/18 04:36 POC Glucose 118 mg/dL (70-99) H 05/23/18 21:25 Hemoglobin A1c 6.2 % (-5.6) H 05/22/18 16:05 Calculated Osmolality 277 (280-300) L 05/24/18 04:36 Calcium 8.3 mg/dL (8.6-10.3) L 05/24/18 04:36 Direct Bilirubin 0.3 mg/dL (0.0-0.2) H 05/22/18 16:05 Troponin I 0.87 ng/mL (< 0.04) H* 05/23/18 06:17 Albumin 3.1 g/dL (3.5-5.7) L 05/22/18 16:05 Globulin 3.6 g/dL (2.4-3.5) H 05/22/18 16:05 Albumin/Globulin Ratio 0.9 (1.1-2.2) L 05/22/18 16:05 HDL Cholesterol 29 mg/dL (40-59) L 05/23/18 06:17 Urine Clarity Cloudy (Clear) A 05/24/18 01:05 Urine Blood Small (Negative) H 05/24/18 01:05 Ur Leukocyte Esterase Moderate (Negative) H 05/24/18 01:05 Urine Microscopic RBC 5-15 per hpf (0-3) H 05/24/18 01:05 Urine Microscopic WBC TNTC per hpf (0-3) H 05/24/18 01:05 Urine Yeast Few per hpf (None Seen) H 05/24/18 01:05 - Clinical Findings Intake & Output: Intake & Output 05/23/18 05/24/18 05/24/18 23:59 07:59 15:59 Intake Total 0 / 0 0 / 0 Output Total 0 / 0 825 / 825 Balance 0 / 0 -825 / -825 Weight 142.6 kg Consult Discharge Plan - Plan Referrals: Isatu Shultz, [employer]ICIAN [Primary Care Provider] - <Jacob Lees - Last Filed: 05/24/18 15:36> Date of Encounter: 05/24/18 All Systems: The remainder of the systems were reviewed and are negative Results - Laboratory Findings CBC and BMP: 05/24/18 04:36 05/24/18 04:36 ABG ABG pH 7.31 pH Units (7.32-7.45) L 05/23/18 21:32 ABG pCO2 73 mmHg (35-45) H* 05/23/18 21:32 ABG pO2 104 mmHg (85-104) 05/23/18 21:32 ABG O2 Saturation 97 % (95-98) 05/23/18 21:32 Abnormal lab findings: Abnormal lab results WBC 12.5 K/mcL (4.3-11.1) H 05/24/18 04:36 RBC 5.08 M/mcL (3.82-4.97) H 05/24/18 04:36 MCV 82.5 fL (83.0-100.0) L 05/24/18 04:36 MCH 25.2 pg (28.0-33.3) L 05/24/18 04:36 MCHC 30.5 g/dL (31.6-35.5) L 05/24/18 04:36 RDW 19.5 % (11.5-14.5) H 05/24/18 04:36 Neutrophils # 10.0 K/mcL (1.6-8.9) H 05/24/18 04:36 Nucleated RBCs/100 WBC 0.2 /100 WBC (0) H 05/23/18 06:17 Heparin Anti-Xa, Unfract 0.27 IU/mL (0.30-0.70) L 05/24/18 12:26 ABG pH 7.31 pH Units (7.32-7.45) L 05/23/18 21:32 ABG pCO2 73 mmHg (35-45) H* 05/23/18 21:32 ABG HCO3 36 mEq/L (21-27) H 05/23/18 21:32 ABG Total CO2 38 mEq/L (20-26) H 05/23/18 21:32 ABG Base Excess 7 mEq/L (-2 to 3) H 05/23/18 21:32 Sodium 133 mEq/L (136-145) L 05/24/18 04:36 Chloride 94 mEq/L (98-107) L 05/24/18 04:36 Carbon Dioxide 34 mEq/L (23-29) H 05/24/18 04:36 Hemoglobin A1c 6.2 % (-5.6) H 05/22/18 16:05 Calculated Osmolality 277 (280-300) L 05/24/18 04:36 Calcium 8.3 mg/dL (8.6-10.3) L 05/24/18 04:36 Direct Bilirubin 0.3 mg/dL (0.0-0.2) H 05/22/18 16:05 Troponin I 0.87 ng/mL (< 0.04) H* 05/23/18 06:17 Albumin 3.1 g/dL (3.5-5.7) L 05/22/18 16:05 Globulin 3.6 g/dL (2.4-3.5) H 05/22/18 16:05 Albumin/Globulin Ratio 0.9 (1.1-2.2) L 05/22/18 16:05 HDL Cholesterol 29 mg/dL (40-59) L 05/23/18 06:17 Urine Clarity Cloudy (Clear) A 05/24/18 01:05 Urine Blood Small (Negative) H 05/24/18 01:05 Ur Leukocyte Esterase Moderate (Negative) H 05/24/18 01:05 Urine Microscopic RBC 5-15 per hpf (0-3) H 05/24/18 01:05 Urine Microscopic WBC TNTC per hpf (0-3) H 05/24/18 01:05 Urine Yeast Few per hpf (None Seen) H 05/24/18 01:05 - Clinical Findings Intake & Output: Intake & Output 05/23/18 05/24/18 05/24/18 23:59 07:59 15:59 Intake Total 0 / 0 0 / 0 Output Total 0 / 0 825 / 825 Balance 0 / 0 -825 / -825 Weight 142.6 kg - Attending Attestation I examined this patient and my medical decision-making was reviewed with the Resident Physician. I agree with the documented findings, disposition and treatment plan as described except to the extent set forth below. Patient seen and examined. Labs, radiology, chart personally reviewed. Agree with resident's history and physical, assessment, plan with following comments: LIGHTING DIRECTOR: Patient follows commands, Pulmonary: Acceptable oxygenation and ventilation. Patient at high risk of venous thromboembolism, and suspect pulmonary hypertension is multifactorial and patient with history of COPD but she does not remember when she was diagnosed and she is on bronchodilators and she will need outpatient workup on follow-up. CT angiogram is recommended and agree with anticoagulation. She might have also underlying obesity hypoventilation syndrome and noninvasive ventilation is reasonable options. Cardiovascular: stable Thank you for the consultation
[2018-05-24] MEDS ORDERED: Isovue-370 500 ML INFUS..BTL IV ONE (09:44)
[2018-05-24] MEDS ORDERED: *HR* OxyCODONE Immed Rel 5 MG TABLET PO ONE (09:54)
[2018-05-24] MEDS ORDERED: *HR* LORazepam 2 MG/ML VIAL IVP ONE (09:55)
[2018-05-24] MEDS: Aspirin 81 MG TAB.CHEW PO SCH (10:12)
[2018-05-24] MEDS: Nicotine 21 MG PATCH.TD24 TD SCH (10:14)
[2018-05-24] MEDS: predniSONE 20 MG TABLET PO SCH (10:14)
[2018-05-24] MEDS: Heparin 25,000 UNIT/500 ML D5W 25,000 UNIT/500 ML BAG IVC SCH ×2 (10:44→21:00)
--- NOTE | 2018-05-24 11:02 | Cardiology Progress Note ---
Date of Encounter: 05/24/18 Time of Encounter: 09:30 Assessment and Plan (1) Elevated troponin Current Visit: Yes Status: Acute Peak troponin 1.43 with downward trend in the setting of acute respiratory failure from bilateral PNA, severe PAH, and possible PE. Likely demand ischemia/ type II IA due to above. No ECG changes noted. Denies chest pain. Presently not a candidate for LHC due to orthopnea and possible PE. TTE reviewed: LVEF 60-65%. Definity echo contrast was used. Atypical septal motion - D shaped septum in early diastole. Mild left ventricular diastolic dysfunction. RV is moderately dilated in size and visually hypokinetic but is not optimally seen in the apical windows. TD velocities are normal. D-shaped septum suggests the presence of RV pressure overload. Moderate tricuspid regurgitation based on spectral Doppler. Mild pulmonic regurgitation. Estimated RVSP is 72 mmHg. Severe pulmonary hypertension. The IVC is dilated. CTA of the chest recommended due to right heart changes there is concern for PE. Patient considering study. Continue heparin gtt for at least 48 hours; add statin, asa, and BB. Not presently a candidate for cardiac rehab. (2) Acute respiratory failure Current Visit: Yes Status: Acute Acute respiratory failure in the setting of bilateral PNA, severe PAH, COPD, and possible PE. Symptoms improved and patient is more alert today. Pulmonology consulted, appreciate eval/recs Qualifiers: Respiratory failure complication: hypercapnia Qualified Code(s): J96.02 - Acute respiratory failure with hypercapnia (3) Pulmonary hypertension Current Visit: Yes Status: Acute TTE shows severe PAH. Pulmonology consulted. Discussion w patient/family: The assessment and plan as outlined above was discussed with the patient and/or family members who expressed understanding and agreement. All questions were answered. Thank you for involving us in the care of your patient. Please call with any questions. Subjective Principal diagnosis: Severe PAH, PNA, elevated troponin Interval history: Ms. Moreno is more alert today. She refused CTA of the chest due to claustrophobia and pain in a sacral ulcer when lying flat. Objective Vital Signs Temp Pulse Resp BP Pulse Ox 05/24/18 06:56 98.1 F 74 20 118/78 99 05/24/18 05:50 97.9 F 74 20 118/72 99 05/24/18 04:06 16 99 05/24/18 01:30 74 20 98 07/31/18 22:00 99 F 99 15 132/78 94 05/23/18 21:50 16 97 05/23/18 21:32 17 94 05/23/18 15:52 97.4 F L 85 18 120/80 94 05/23/18 15:49 18 91 05/23/18 11:19 98.8 F 87 16 121/78 95 Intake and Output 05/23/18 05/24/18 05/24/18 23:59 07:59 15:59 Intake Total 0 / 0 0 / 0 Output Total 0 / 0 825 / 825 Balance 0 / 0 -825 / -825 Intake: Oral 0 / 0 0 / 0 Output: Catheter 0 / 0 825 / 825 Other: Meal Dinner Percent of Meal Consumed 0% Stool Size Small Stool Consistency liquid Stool Color Brown Weight 142.6 kg Blood Glucose* 118 76 Patient Weight 05/24/18 23:59 Weight 142.6 kg General: Conversant, No Apparent Distress HEENT: Atraumatic, Normocephaly, Mucus Membranes Moist Neck: No JVD, Normal carotid pulses Cardiac: Reg Rate and Rhythm, Normal S1 and S2, No Murmur Lungs: Normal Breath Sounds, No Wheeze, Rales, Rhonchi, Other (Lung sounds diminished in bases) Neuro: Alert and responsive, No focal deficits noted Abdomen: Soft, Non-Tender Skin: Other (BLE extremity with redness and scaling (chronic)) Musculoskeletal: No Chest Wall Tenderness Extremities: No Clubbing, No Cyanosis, Normal Pulses, Other (Non-pitting edema in BLE) Results 05/24/18 04:36 05/24/18 04:36 Lab Results 05/24/18 05/24/18 04:36 04:36 WBC 12.5 H Hgb 12.8 Hct 41.9 Plt Count 171 Sodium 133 L Potassium 4.4 Chloride 94 L Carbon Dioxide 34 H BUN 17 Creatinine 0.80 Glucose 97 Calcium 8.3 L - Imaging and Cardiology Echo: report reviewed - EKG Interpretation EKG results cardiology: personally reviewed Consult Discharge Plan - Plan Referrals: Isatu Shultz, [employer] [Primary Care Provider] -
[2018-05-24] MEDS: Azithromycin 500 MG in D5% in Water 250 ML IVPB SCH (12:44)
[2018-05-24] MEDS: cefTRIAXone 1,000 MG in Water for inj. (sterile) 20 ML 10 ML IVP SCH (12:45)
[2018-05-24] MEDS: Furosemide 20 MG/2 ML VIAL IVP SCH ×2 (12:54→17:59)
[2018-05-24] MEDS: *HR* Heparin 5,000 UNIT/ML VIAL IVP PRN (13:42)
[2018-05-24] MEDS ORDERED: MICONAZOLE NITRATE 57 GM TUBE TP PRN (14:36)
--- NOTE | 2018-05-24 16:37 | Event Note ---
Date of Encounter: 05/24/18 Time of Encounter: 09:00 I have seen and examined this patient independently. I have discussed with resident physician Dr. Ornelas regarding the management plan. Details please refer to his note.
[2018-05-24] MEDS ORDERED: Heparin 25,000 UNIT/500 ML D5W 25,000 UNIT/500 ML BAG IVC SCH (17:00)
--- NOTE | 2018-05-24 18:05 | Internal Med Progress Note ---
Hospitalist Progress Note - Encounter Date of Encounter: 05/24/18 Time of Encounter: 10:30 - Subjective Interval History: 63 y/o female presented to [facility] with SOB and AMS. Patient very alert this AM. She was weaned off BIPAP yesterday, but became lethargic overnight per nurse and resumed BIPAP, doing well this morning back on nasal cannula 2L. Complains today of buttock pain because of her sacral decubitus ulcers. She has agreed to have CTA today. Patient denies chest pain, SOB, abdominal pain, LE pain/ numbness/parathesias. - Exam Vitals: Temp Pulse Resp BP Pulse Ox 98.2 F 89 16 118/78 97 05/24/18 15:27 05/24/18 15:27 05/24/18 16:32 05/24/18 15:27 05/24/18 16:32 Exam: GEN - Well appearing obese female in no acute distress, on 2L nasal cannula, A& O x3 HEENT - normocephalic, CV - RRR, no gallops, rubs, no JVD RESP - diminshed sounds possibly due to body habitus. No wheezes, GI - soft, nontender, BSx4 - tierney present, no gross blood present in urine MSK - normal ROM VASC - erythematous excoriated stasis dermatitis in LE bilaterally, bilateral lower extremity pitting edema - Assessment and Plan (1) Pulmonary embolism and infarction Current Visit: Yes Status: Acute Assessment and Plan: Bilateral pulmonary emboli with right lung infarction on CTA Continue heparin drip for now If patient becomes hemodynamically unstable - give tPA Causing group 3 pulmonary HTN Pulmonology on consult (2) Acute respiratory failure Current Visit: Yes Status: Acute Assessment and Plan: Associated hypoxia and chronic hypercapnia with compensatory metabolic alkalosis 2/2 pulm HTN and COPD, likely MAN[place] pH 7.31, PCO2 73, HCO3 34 Patient currently on 2L NC -wean as tolerated, needed BIPAP overnight, no home oxygen F/u outpatient polysomnography CTA showed bilateral pulmonary emboli (3) Bilateral pneumonia Current Visit: Yes Status: Acute Assessment and Plan: Continue Rocephin and Zithromax WBC 11.4 > 12.5 today Sputum culture ordered (4) Elevated troponin Current Visit: Yes Status: Acute Assessment and Plan: Bilateral PE on CTA Continue heparin drip for now Will give tPA if patient becomes hemodynamically unstable Continue ASA Continue metoprolol (5) CHF exacerbation Current Visit: Yes Status: Acute Assessment and Plan: LE pitting edema NORY showed EF of 60-65% Start IV lasix 20 mg BID (6) Hyponatremia Current Visit: Yes Status: Acute Assessment and Plan: Unchanged from yesterday - 133 Continue to monitor (7) Chronic venous insufficiency Current Visit: Yes Status: Chronic Assessment and Plan: Wound care on consult (8) Decubital ulcer Current Visit: Yes Status: Chronic Assessment and Plan: Wound care on consult DVT Prophylaxis: heparin drip - Time Spent with Patient Total time spent is greater than 50% in coordination of care (as documented) at patient's floor/unit and/or counseling patient: 25 - 35 minutes Plan of Care Discussed with: patient Internal Medicine: Result - Labs CBC & Chem 7: 05/24/18 04:36 05/24/18 04:36 Labs: Short CBC 05/24/18 Range/Units 04:36 WBC 12.5 H (4.3-11.1) K/mcL Hgb 12.8 (11.5-15.4) g/dL Hct 41.9 (35.3-44.9) % Plt Count 171 (140-400) K/mcL Neutrophils # 10.0 H (1.6-8.9) K/mcL BMP 05/24/18 04:36 Sodium 133 L Potassium 4.4 Chloride 94 L Carbon Dioxide 34 H BUN 17 Creatinine 0.80 Glucose 97 Calcium 8.3 L Urine 05/24/18 Range/Units 01:05 Urine Color Yellow (Yellow) Urine Clarity Cloudy A (Clear) Urine pH 6.0 (5.0-8.0) pH Units Ur Specific [place] 1.015 (1.010-1.025) Urine Protein Negative (Neg-Trace) mg/dL Urine Glucose (UA) Normal (Normal) mg/dL - ABG Interpretation ABG results: ABG ABG pH 7.31 pH Units (7.32-7.45) L 05/23/18 21:32 ABG pCO2 73 mmHg (35-45) H* 05/23/18 21:32 ABG pO2 104 mmHg (85-104) 05/23/18 21:32 ABG O2 Saturation 97 % (95-98) 05/23/18 21:32 - Impressions Impressions Chest CTA 05/24/18 11:00 IMPRESSION: Bilateral pulmonary emboli with an enlarged main pulmonary artery compatible with pulmonary arterial hypertension which is likely chronic. Bibasilar atelectasis with wedge-shaped pleural-based infiltrate lateral segment right middle lobe worrisome for pulmonary infarct. The above-mentioned findings were discussed with the patient's nurse, Po Prado, on 05/24/2018 at 1230 hours. D/ / 05/24/2018 12:33:43 Kody Zabala MD / diana Interpreting Provider: Kody Zabala MD Consult Discharge Plan - Plan Referrals: Isatu Shultz CNP [Primary Care Provider] - (2) Acute respiratory failure Qualifiers: Respiratory failure complication: hypercapnia Qualified Code(s): J96.02 - Acute respiratory failure with hypercapnia (3) Bilateral pneumonia Qualifiers: Pneumonia type: due to unspecified organism Lung location: unspecified part of lung Qualified Code(s): J18.9 - Pneumonia, unspecified organism (8) Decubital ulcer Qualifiers: Pressure injury location: buttock Pressure injury stage: unspecified pressure injury stage
[2018-05-24] MEDS: *HR* OxyCODONE Immed Rel 5 MG TABLET PO PRN (20:19)
[2018-05-24] MEDS ORDERED: *HR* Heparin 5,000 UNIT/ML VIAL IVP PRN ×2 (21:15)
[2018-05-24] MEDS: Budesonide/Formoterol 160/4.5 1 PUFF INH IH SCH (22:19)
[2018-05-25 01:41] LABS: Basophils % 0.1 %; Hematocrit 41.4 % (35.3-44.9); Hematocrit 41.8 % (35.3-44.9); Hemoglobin 12.5 g/dL (11.5-15.4); Hemoglobin 12.6 g/dL (11.5-15.4); Immature Granulocytes % 0.4 % (0-4); Lymphocytes # 1.1 K/mcL (0.6-4.6); Lymphocytes % 9.1 %; Mean Corpuscular HGB Conc 29.9 g/dL (31.6-35.5); Mean Corpuscular HGB Conc 30.4 g/dL (31.6-35.5); Mean Corpuscular Hemoglobin 24.6 pg (28.0-33.3); Mean Corpuscular Volume 82.1 fL (83.0-100.0); Mean Platelet Volume 8.9 fL (9.4-12.4); Mean Platelet Volume 9.5 fL (9.4-12.4); Monocytes # 0.6 K/mcL (0.0-1.3); Monocytes % 5.3 %; Neutrophils # 9.8 K/mcL (1.6-8.9); Platelet Count 155 K/mcL (140-400); Platelet Count 166 K/mcL (140-400); Red Blood Count 5.04 M/mcL (3.82-4.97); Red Blood Count 5.09 M/mcL (3.82-4.97); Red Cell Distribution Width 19.3 % (11.5-14.5); Segmented Neutrophils % 85.1 %
[2018-05-25 01:47] LABS: Heparin anti-factor XA UFH 0.62 IU/mL (0.30-0.70)
[2018-05-25 01:48] LABS: INR 1.2; Prothrombin Time 13.8 Seconds (9.4-12.1)
[2018-05-25 01:59] LABS: BUN/Creatinine Ratio 21 (6-26); Blood Urea Nitrogen 15 mg/dL (8-23); Calcium 8.5 mg/dL (8.6-10.3); Carbon Dioxide 39 mEq/L (23-29); Chloride 93 mEq/L (98-107); Glucose 118 mg/dL (70-105); Osmolality,Calculated 282 (280-300); Potassium 4.1 mEq/L (3.5-5.1); Sodium 135 mEq/L (136-145); eGFR For Non-African Americans > 60 (> 60)
[2018-05-25] MEDS: Ipratropium/Albuterol Neb 3 ML IH SCH ×4 (04:34→23:33)
[2018-05-25] MEDS: Heparin 25,000 UNIT/500 ML D5W 25,000 UNIT/500 ML BAG IVC SCH (05:20)
[2018-05-25] MEDS: Furosemide 20 MG/2 ML VIAL IVP SCH (09:57)
[2018-05-25] MEDS: Aspirin 81 MG TAB.CHEW PO SCH (09:57)
[2018-05-25] MEDS: *HR* OxyCODONE Immed Rel 5 MG TABLET PO PRN (09:59)
[2018-05-25] MEDS: Nicotine 21 MG PATCH.TD24 TD SCH (10:00)
[2018-05-25] MEDS: Budesonide/Formoterol 160/4.5 1 PUFF INH IH SCH ×2 (10:54→23:33)
[2018-05-25] MEDS: cefTRIAXone 1,000 MG in Water for inj. (sterile) 20 ML 10 ML IVP SCH (13:41)
[2018-05-25] MEDS: Azithromycin 500 MG in D5% in Water 250 ML IVPB SCH (13:42)
--- NOTE | 2018-05-25 14:55 | Internal Med Progress Note ---
<Gray Ornelas - Last Filed: 05/25/18 14:51> Hospitalist Progress Note - Encounter Date of Encounter: 05/25/18 Time of Encounter: 10:00 - Subjective Interval History: 63 y/o female presented to [facility] with SOB and AMS. Patient doing well and very alert this AM. She has no complaints today. She is off BIPAP and saturating at 94% on 2L NC. Patient denies chest pain, SOB, abdominal pain, LE pain/ numbness/parathesias. - Exam Vitals: Temp Pulse Resp BP Pulse Ox 98.2 F 99 16 91/55 91 05/25/18 11:33 05/25/18 11:33 05/25/18 11:33 05/25/18 11:33 05/25/18 11:33 Exam: Gen: no acute distress, A&O x3 HEENT: normocephalic Heart: RRR, normal S1 + S2 Lungs: Diminished breath sounds, wheezing present in lower lung smith bilaterally GI: soft, non-tender : tierney intact, no karen blood Extremities: bilateral erythematous LE with stasis dermatitis and edema - Assessment and Plan (1) Acute on chronic respiratory failure with hypoxia and hypercapnia Current Visit: Yes Status: Acute Assessment and Plan: Associated hypoxia and chronic hypercapnia with compensatory metabolic alkalosis secondary to bilateral pulmonary emboli, pulm HTN, and COPD HCO3: 39, Cl: 93 Patient is currently on 1-2L NC No current home oxygen. Continue to monitor symptoms. F/u outpatient for polysomnography evaluation (2) Pulmonary hypertension Current Visit: Yes Status: Acute Assessment and Plan: WHO group 4 Secondary to chronic thromboembolic disease Echo showed RV is moderately dilated Switched patient to home PO lasix Start patient on outpatient home O2 1-4L, will be started on Elliquis (3) Bilateral pneumonia Current Visit: Yes Status: Acute Assessment and Plan: Continue Azithromycin and Rocephin Patient saturating at 94% on 2L NC (4) Elevated troponin Current Visit: Yes Status: Acute Assessment and Plan: Likely secondary to PE Cardiology has been consulted, patient remains on standard heparin drip for at least 48 hours Continue to monitor for symptomology (5) CHF exacerbation Current Visit: Yes Status: Acute Assessment and Plan: Patient has marked bilateral LE pitting edema Echo (05/23/18) showed EF 60-65% HCO3: 39, Switch IV lasix to PO lasix 20mg BID due to risk of contraction alkalosis with increasing bicarbonate (6) Hyponatremia Current Visit: Yes Status: Acute Assessment and Plan: Resolved - 135 today Continue to monitor (7) Chronic venous insufficiency Current Visit: Yes Status: Chronic Assessment and Plan: Wound care on consult (8) Decubital ulcer Current Visit: Yes Status: Chronic Assessment and Plan: Wound care on consult Likely 2/2 patient immobility ECF placement upon discharge for assisstance (9) Pulmonary embolism and infarction Current Visit: Yes Status: Acute Assessment and Plan: Submassive bilateral PE Patient has no respiratory complaints Patient was discontinued from low dose hep and started on standard inpatient heparin therapy Will maintain inpatient heparin therapy for 48 hours and bridge to eliis for home anticoagulation indefinitely DVT Prophylaxis: Standard inpatient heparin - Time Spent with Patient Total time spent is greater than 50% in coordination of care (as documented) at patient's floor/unit and/or counseling patient: 25 - 35 minutes Plan of Care Discussed with: patient Internal Medicine: Result - Labs CBC & Chem 7: 05/25/18 01:28 05/25/18 01:28 Labs: Short CBC 05/25/18 05/25/18 Range/Units 01:28 01:28 WBC 11.4 H 11.5 H (4.3-11.1) K/mcL Hgb 12.6 12.5 (11.5-15.4) g/dL Hct 41.4 41.8 (35.3-44.9) % Plt Count 155 166 (140-400) K/mcL Neutrophils # 9.8 H (1.6-8.9) K/mcL BMP 05/25/18 01:28 Sodium 135 L Potassium 4.1 Chloride 93 L Carbon Dioxide 39 H BUN 15 Creatinine 0.73 Glucose 118 H Calcium 8.5 L - ABG Interpretation ABG results: ABG ABG pH 7.31 pH Units (7.32-7.45) L 05/23/18 21:32 ABG pCO2 73 mmHg (35-45) H* 05/23/18 21:32 ABG pO2 104 mmHg (85-104) 05/23/18 21:32 ABG O2 Saturation 97 % (95-98) 05/23/18 21:32 PT/INR, D-dimer PT 13.8 Seconds (9.4-12.1) H 05/25/18 01:28 Consult Discharge Plan - Plan Referrals: Isatu Shultz CNP [Primary Care Provider] - Prescriptions: Rivaroxaban [Xarelto] 20 mg PO DAILY #30 tablet <FranMarylin - Last Filed: 05/25/18 15:46> Hospitalist Progress Note - Encounter Date of Encounter: 05/25/18 - Exam Vitals: Temp Pulse Resp BP Pulse Ox 98.2 F 99 16 91/55 91 05/25/18 11:33 05/25/18 11:33 05/25/18 11:33 05/25/18 11:33 05/25/18 11:33 - Assessment and Plan (1) Bilateral pneumonia Current Visit: Yes Status: Acute (2) Elevated troponin Current Visit: Yes Status: Acute (3) Hyponatremia Current Visit: Yes Status: Acute (4) CHF exacerbation Current Visit: Yes Status: Acute (5) Chronic venous insufficiency Current Visit: Yes Status: Chronic (6) Decubital ulcer Current Visit: Yes Status: Chronic (7) Acute on chronic respiratory failure with hypoxia and hypercapnia Current Visit: Yes Status: Acute (8) Pulmonary hypertension Current Visit: Yes Status: Acute (9) Pulmonary embolism and infarction Current Visit: Yes Status: Acute - Time Spent with Patient Total time spent is greater than 50% in coordination of care (as documented) at patient's floor/unit and/or counseling patient: Internal Medicine: Result - Labs CBC & Chem 7: 05/25/18 01:28 05/25/18 01:28 Labs: Short CBC 05/25/18 05/25/18 Range/Units 01:28 01:28 WBC 11.4 H 11.5 H (4.3-11.1) K/mcL Hgb 12.6 12.5 (11.5-15.4) g/dL Hct 41.4 41.8 (35.3-44.9) % Plt Count 155 166 (140-400) K/mcL Neutrophils # 9.8 H (1.6-8.9) K/mcL BMP 05/25/18 01:28 Sodium 135 L Potassium 4.1 Chloride 93 L Carbon Dioxide 39 H BUN 15 Creatinine 0.73 Glucose 118 H Calcium 8.5 L - ABG Interpretation ABG results: ABG ABG pH 7.31 pH Units (7.32-7.45) L 05/23/18 21:32 ABG pCO2 73 mmHg (35-45) H* 05/23/18 21:32 ABG pO2 104 mmHg (85-104) 05/23/18 21:32 ABG O2 Saturation 97 % (95-98) 05/23/18 21:32 PT/INR, D-dimer PT 13.8 Seconds (9.4-12.1) H 05/25/18 01:28 - Attending Attestation I have seen and examined this patient independently. I have discussed with resident physician Dr. Ornelas regarding the management plan. Agree with the documentation. <Gray Ornelas - Last Filed: 05/25/18 14:51> (3) Bilateral pneumonia Qualifiers: Pneumonia type: due to unspecified organism Lung location: unspecified part of lung Qualified Code(s): J18.9 - Pneumonia, unspecified organism (8) Decubital ulcer Qualifiers: Pressure injury location: buttock Pressure injury stage: unspecified pressure injury stage <Marylin Peters - Last Filed: 05/25/18 15:46> (1) Bilateral pneumonia Qualifiers: Pneumonia type: due to unspecified organism Lung location: unspecified part of lung Qualified Code(s): J18.9 - Pneumonia, unspecified organism (6) Decubital ulcer Qualifiers: Pressure injury location: buttock Pressure injury stage: unspecified pressure injury stage
[2018-05-25] MEDS: Furosemide 20 MG TABLET PO SCH (18:33)
[2018-05-25] MEDS: *HR* Rivaroxaban 15 MG TABLET PO SCH (21:19)
[2018-05-26 01:45] LABS: Basophils % 0.3 %; Eosinophils # 0.1 K/mcL (0.0-0.6); Eosinophils % 0.7 %; Hematocrit 42.8 % (35.3-44.9); Hemoglobin 12.8 g/dL (11.5-15.4); Immature Granulocytes % 0.4 % (0-4); Lymphocytes # 1.7 K/mcL (0.6-4.6); Lymphocytes % 16.6 %; Mean Corpuscular HGB Conc 29.9 g/dL (31.6-35.5); Mean Corpuscular Volume 83.4 fL (83.0-100.0); Mean Platelet Volume 9.9 fL (9.4-12.4); Monocytes # 0.7 K/mcL (0.0-1.3); Monocytes % 7.1 %; Neutrophils # 7.5 K/mcL (1.6-8.9); Platelet Count 170 K/mcL (140-400); Red Blood Count 5.13 M/mcL (3.82-4.97); Red Cell Distribution Width 18.9 % (11.5-14.5); Segmented Neutrophils % 74.9 %
[2018-05-26 02:14] LABS: BUN/Creatinine Ratio 24 (6-26); Blood Urea Nitrogen 14 mg/dL (8-23); Calcium 8.6 mg/dL (8.6-10.3); Carbon Dioxide 40 mEq/L (23-29); Chloride 92 mEq/L (98-107); Glucose 100 mg/dL (70-105); Osmolality,Calculated 283 (280-300); Potassium 3.9 mEq/L (3.5-5.1); Sodium 136 mEq/L (136-145); eGFR For Non-African Americans > 60 (> 60)
[2018-05-26] MEDS: Ipratropium/Albuterol Neb 3 ML IH SCH ×4 (04:07→22:16)
[2018-05-26] MEDS: Aspirin 81 MG TAB.CHEW PO SCH (09:04)
[2018-05-26] MEDS: *HR* Rivaroxaban 15 MG TABLET PO SCH ×2 (09:04→22:18)
[2018-05-26] MEDS: Furosemide 20 MG TABLET PO SCH ×2 (09:04→17:15)
[2018-05-26] MEDS: Nicotine 21 MG PATCH.TD24 TD SCH (09:06)
[2018-05-26] MEDS ORDERED: Azithromycin 250 MG TABLET PO SCH (11:30)
[2018-05-26] MEDS: Budesonide/Formoterol 160/4.5 1 PUFF INH IH SCH ×2 (11:45→20:10)
[2018-05-26] MEDS: cefTRIAXone 1,000 MG in Water for inj. (sterile) 20 ML 10 ML IVP SCH (11:54)
--- NOTE | 2018-05-26 12:15 | Discharge Summary ---
<Gray Ornelas S - Last Filed: 05/26/18 15:40> Orders not resulted at time of discharge: Pending orders 05/22/18 15:59 Culture,Sputum with Gram Stain [RM] Routine Date of Encounter: 05/26/18 Time of Encounter: 10:00 - Discharge Diagnosis (1) Acute on chronic respiratory failure with hypoxia and hypercapnia Priority: Primary Status: Acute Assessment and Plan: Associated hypoxia and chronic hypercapnia with compensatory metabolic alkalosis secondary to bilateral pulmonary emboli, pulm HTN, and COPD Patient is currently on 1-2L NC No current home oxygen. Patient to have evaluation for home oxygen F/u outpatient for polysomnography evaluation (2) Pulmonary hypertension Priority: Primary Status: Acute Assessment and Plan: WHO group 4 Secondary to chronic thromboembolic disease Echo showed RV is moderately dilated Switched patient to home PO lasix Start patient on outpatient home O2 1-4L Patient started on xarelto 15 mg BID PO for 21 days, then switch to 20 mg daily PO indefinitely (3) Bilateral pneumonia Priority: Primary Status: Acute Assessment and Plan: Patient finished course of Abx White count improved - 10.0 today Qualifiers: Pneumonia type: due to unspecified organism Lung location: unspecified part of lung Qualified Code(s): J18.9 - Pneumonia, unspecified organism (4) Elevated troponin Priority: Secondary Status: Acute Assessment and Plan: 2/2 to PE Patient on xarelto 15 mg BID for 21 days, then switch to xarelto 20 mg daily indefinitely (5) CHF exacerbation Priority: Secondary Status: Acute Assessment and Plan: Patient on home lasix 20 mg PO BID Qualifiers: Qualified Code(s): I50.33 - Acute on chronic diastolic (congestive) heart failure (6) Hyponatremia Priority: Secondary Status: Acute (7) Chronic venous insufficiency Priority: Secondary Status: Chronic (8) Decubital ulcer Priority: Secondary Status: Chronic Assessment and Plan: Wound care on consult Qualifiers: Pressure injury location: buttock Pressure injury stage: unspecified pressure injury stage Qualified Code(s): L89.309 - Pressure ulcer of unspecified buttock, unspecified stage (9) Pulmonary embolism and infarction Priority: Primary Status: Acute Assessment and Plan: Submassive bilateral PE Patient has no respiratory complaints Patient was discontinued from low dose hep and started on standard inpatient heparin therapy Patient started on xarelto 15mg BID for 21 days, then start 20 mg daily indefinitely Hospital course: Patient is a 63 y/o F who presented to [facility] on 05/22 for SOB and AMS from [place] where she was taken for evaluation by her family. Patient had been minimally mobile and not cleaning herself after soiling, causing skin breakdown. Upon arrival patient had EKG done which showed old Q waves, no ischemic changes. Trended troponins were elevated x4 so patient was started on low dose heparin therapy in hospital. Patient was started on 4L nasal cannula. Patient became distressed overnight and was put on BIPAP on 05/23 an weaned off later to nasal cannula, 1-2L for remainder of time with overnight BIPAP prn. Patient remained in respiratory acidosis with hypercapnia, compensating metabolically with elevated bicarbonate. Echo was done 05/23 and showed LV EF of 60-65%, RV was moderately dilated in size suggesting RV pressure overload. Echo findings suggested severe pulmonary hypertension (group 4) and warranted CTA to look for PE. CTA showed bilateral submassive PEs, likely provoked by sedentary lifestyle at home. Patient was switched to standard heparin therapy for 24 hours in hospital and bridged to outpatient Xarelto. Patient to take Xarelto 15 mg PO BID for 21 days, then switch to xarelto 20 mg PO daily indefinitely. Patient was evaluated by wound care with findings of buttock MASD as well as infected stasis dermatitis of bilateral lower extremities, with possible overlying fungal infection. Wounds were medicated with washing and topical antifungal. Patient is being discharged to rehab facility for maximal assist. Patient instructed to followup with pulmonology. Will need outpatient polysomnography for MANSOOR evaluation, as well as home oxygen. Discharge discussed with: patient - Time Spent with Patient Total time spent providing and/or coordinating discharge services: Less than 30 minutes - Discharge Medications Prescriptions: Rivaroxaban [Xarelto] 15 mg PO BID #42 tablet Rivaroxaban [Xarelto] 20 mg PO DAILY #30 tablet Home Medications: Albuterol Sulfate [Ventolin Hfa] 108 mcg IH Q6H PRN 10/09/15 [History] Aspirin Enteric Coated [Aspirin EC] 81 mg PO DAILY 10/09/15 [History] Calcium Carbonate/Vitamin D3 [Calcium 500-Vit D3 400 Tablet] 1 each PO BID 10/09 [History] Gabapentin [Neurontin] 100 mg PO TID 10/09/15 [History] Lisinopril [Zestril] 5 mg PO DAILY 10/09/15 [History] Loratadine [Claritin] 10 mg PO DAILY 10/09/15 [History] Lovastatin [Mevacor] 20 mg PO HS 10/09/15 [History] Metoprolol [Lopressor] 50 mg PO BID 10/09/15 [History] Montelukast [Singulair] 10 mg PO DAILY 10/09/15 [History] Multivitamin [Multi-Day Vitamins] 1 each PO DAILY 10/09/15 [History] Naproxen Sodium [Naproxen Sodium Cr] 375 mg PO BID 10/09/15 [History] Omeprazole [PriLOSEC] 20 mg PO DAILY 10/09/15 [History] Potassium Chloride [Klor-Con Sprinkle] 20 meq PO DAILY 10/09/15 [History] Nitroglycerin [Nitrostat] 0.4 mg SL AD 01/30/16 [History] Bumetanide 0.5 mg PO BID 05/23/18 [History] Furosemide [Lasix] 40 mg PO DAILY 05/23/18 [History] Tiotropium [place] [Spiriva Respimat] 2 puff IH DAILY 05/23/18 [History] Tramadol HCl [Ultram] 50 mg PO TID PRN 05/23/18 [History] Rivaroxaban [Xarelto] 20 mg PO DAILY #30 tablet 05/25/18 [Rx] Nicotine Patch [Nicoderm] 21 mg TD DAILY patch.td24 05/26/18 [Rx] Rivaroxaban [Xarelto] 15 mg PO BID #42 tablet 05/26/18 [Rx] Allergies/Adverse Reactions: 3 Allergy/AdvReac Type Severity Reaction Status Date / Time No Known Allergies Allergy Verified 05/22/18 08:39 Date of admission: 05/22/18 15:36 Primary care physician: Isatu Shultz Consults: 05/22/18 15:36 Consult to Cardiac Rehabilitation-Phase1 [CONS] Routine Comment: Reason for Consult: AMI Call Completed: Yes Consult to Nurse Navigator [CONS] Routine Comment: 05/22/18 16:06 Consult to Physical Therapy [CONS] Routine Comment: Evaluate, develop and implement POC Reason for Consult: deconditioning Does patient have active BEDREST order?: No Is patient medically & hemodynamically stable?: No Patient assessed for mobility or mobilized this visit?: No 05/22/18 16:07 OT [Consult to Occupational Therapy] [CONS] Routine Comment: Evaluate, develop and implement POC Reason for Consult: deconditioning Does patient have active BEDREST order?: No Is patient medically & hemodynamically stable?: No Patient assessed for mobility or mobilized this visit?: No 05/22/18 18:06 Consult to Nurse Navigator [CONS] Routine Comment: 05/23/18 10:27 Consult to Pill Maker [CONS] Routine Reason for SW Consult: Poor living conditions; will likely need SNF at discharge 05/23/18 11:58 Consult to Wound Care [CONS] Routine Reason for Consult: BLE VERY REDDENED, SEEN OUTPT WOUND FOR THIS, ALSO BUTTOCKS WITH MULTIPLE PRESSURE INJURIES Call Completed: No 05/23/18 17:28 Consult to Pulmonology [CONS] Routine Consulting Provider: [facility] Reason for Consult: Severe Pulmonary Hypertension. Call Completed: No Discharging clinician: Gray Ornelas Anticipated date of discharge: 05/26/18 - Constitutional Vitals: Temp Pulse Resp BP Pulse Ox 98.4 F 97 17 123/79 94 05/26/18 07:55 05/26/18 07:55 05/26/18 11:52 05/26/18 07:55 05/26/18 11:52 General appearance: Present: A&O X 3, morbidly obese, no acute distress - Respiratory Respiratory exam: Present: decreased breath sounds - Cardiovascular Cardiovascular exam: Present: RRR, +S1, +S2 - GI/Abdominal GI/Abdominal exam: Present: soft - Extremities Exam Extremities exam: Present: pedal edema, warm, radial pulses palpable and symmetrical - Expanded Lower Extremities Exam Lower Leg exam: Present: erythema, swelling Ankle exam: Present: erythema, swelling Foot/Toe exam: Present: swelling - Skin Additional comments: Sacral decubitus ulcer - Patient Status Disposition: Transfer Inpatient Rehab Fac Condition: Fair Functional capacity at discharge: bed bound Overall status at discharge: patient is progressing back to baseline - Discharge Instructions Follow Up With: Isatu Shultz CNP [Primary Care Provider] - - Diet and Activity Activity: as per physical therapy Diet: low salt diet <Marylin Peters - Last Filed: 05/26/18 16:48> - NOTES TO OUTPATIENT PROVIDER Notes to Outpatient Provider: 1. Pt was found PE and pulmonary hypertension. Xarelto therapy started, please cont on 15mg po bid for totally 21 days (last day: 06/15/18) then switch to 20mg po daily. 2. Pt needs to f/u with pulmonology after discharge for pulmonary hypertension. 3. Pt needs home O2 and home bipap qualification evaluation upon discharged from your facility. Orders not resulted at time of discharge: Pending orders 05/22/18 15:59 Culture,Sputum with Gram Stain [RM] Routine Date of Encounter: 05/26/18 - Discharge Diagnosis (1) Bilateral pneumonia Status: Acute Qualifiers: Pneumonia type: due to unspecified organism Lung location: unspecified part of lung Qualified Code(s): J18.9 - Pneumonia, unspecified organism (2) Elevated troponin Status: Acute (3) Hyponatremia Status: Acute (4) CHF exacerbation Status: Acute Qualifiers: Qualified Code(s): I50.33 - Acute on chronic diastolic (congestive) heart failure (5) Chronic venous insufficiency Status: Chronic (6) Decubital ulcer Status: Chronic Qualifiers: Pressure injury location: buttock Pressure injury stage: unspecified pressure injury stage Qualified Code(s): L89.309 - Pressure ulcer of unspecified buttock, unspecified stage (7) Acute on chronic respiratory failure with hypoxia and hypercapnia Status: Acute (8) Pulmonary hypertension Status: Acute (9) Pulmonary embolism and infarction Status: Acute Hospital course: Ms. Moreno is a 63 year old female - Time Spent with Patient Total time spent providing and/or coordinating discharge services: Date of admission: 05/22/18 15:36 Primary care physician: Isatu Shultz Consults: 05/22/18 15:36 Consult to Cardiac Rehabilitation-Phase1 [CONS] Routine Comment: Reason for Consult: AMI Call Completed: Yes Consult to Nurse Navigator [CONS] Routine Comment: 05/22/18 16:06 Consult to Physical Therapy [CONS] Routine Comment: Evaluate, develop and implement POC Reason for Consult: deconditioning Does patient have active BEDREST order?: No Is patient medically & hemodynamically stable?: No Patient assessed for mobility or mobilized this visit?: No 05/22/18 16:07 OT [Consult to Occupational Therapy] [CONS] Routine Comment: Evaluate, develop and implement POC Reason for Consult: deconditioning Does patient have active BEDREST order?: No Is patient medically & hemodynamically stable?: No Patient assessed for mobility or mobilized this visit?: No 05/22/18 18:06 Consult to Nurse Navigator [CONS] Routine Comment: 05/23/18 10:27 Consult to Pill Maker [CONS] Routine Reason for SW Consult: Poor living conditions; will likely need SNF at discharge 05/23/18 11:58 Consult to Wound Care [CONS] Routine Reason for Consult: BLE VERY REDDENED, SEEN OUTPT WOUND FOR THIS, ALSO BUTTOCKS WITH MULTIPLE PRESSURE INJURIES Call Completed: No 05/23/18 17:28 Consult to Pulmonology [CONS] Routine Consulting Provider: [facility] Reason for Consult: Severe Pulmonary Hypertension. Call Completed: No - Constitutional Vitals: Temp Pulse Resp BP Pulse Ox 98.0 F 88 16 106/72 93 05/26/18 16:23 05/26/18 16:23 05/26/18 16:32 05/26/18 16:23 05/26/18 16:32 - Attending Attestation I have seen and examined this patient independently. I have discussed with resident physician Dr. Ornelas regarding the discharge and the follow-up plan. Agree with the documentation.
--- NOTE | 2018-05-26 12:18 | Physician Discharge Referral ---
ExtendedCare Referral Info Transfer To: F Provider in Charge: Dr. Marylin Peters Institutional Level of Care: Skilled (Patient to be transferred as soon as social work confirms insurance and placement for patient.) - Diagnosis (1) Pulmonary embolism and infarction Status: Acute (2) Acute on chronic respiratory failure with hypoxia and hypercapnia Status: Acute (3) Pulmonary hypertension Status: Acute (4) Bilateral pneumonia Status: Acute (5) Elevated troponin Status: Acute (6) CHF exacerbation Status: Acute (7) Hyponatremia Status: Acute (8) Chronic venous insufficiency Status: Chronic (9) Decubital ulcer Status: Chronic - Transfer Medications Prescriptions: Rivaroxaban [Xarelto] 20 mg PO DAILY #30 tablet Home Medications: Albuterol Sulfate [Ventolin Hfa] 108 mcg IH Q6H PRN 10/09/15 [History] Aspirin Enteric Coated [Aspirin EC] 81 mg PO DAILY 10/09/15 [History] Calcium Carbonate/Vitamin D3 [Calcium 500 + D Tablet] 1 each PO BID 10/09/15 [ History] Gabapentin [Neurontin] 100 mg PO TID 10/09/15 [History] Lisinopril [Zestril] 5 mg PO DAILY 10/09/15 [History] Loratadine [Claritin] 10 mg PO DAILY 10/09/15 [History] Lovastatin [Mevacor] 20 mg PO HS 10/09/15 [History] Metoprolol [Lopressor] 50 mg PO BID 10/09/15 [History] Montelukast [Singulair] 10 mg PO DAILY 10/09/15 [History] Multivitamin [Multi-Day Vitamins] 1 each PO DAILY 10/09/15 [History] Naproxen Sodium [Naproxen Sodium Cr] 375 mg PO BID 10/09/15 [History] Omeprazole [PriLOSEC] 20 mg PO DAILY 10/09/15 [History] Potassium Chloride [Klor-Con Sprinkle] 20 meq PO DAILY 10/09/15 [History] Nitroglycerin [Nitrostat] 0.4 mg SL AD 01/30/16 [History] Bumetanide [Bumetanide] 0.5 mg PO BID 05/23/18 [History] Furosemide [Lasix] 40 mg PO DAILY 05/23/18 [History] Tiotropium [place] [Spiriva Respimat] 2 puff IH DAILY 05/23/18 [History] Tramadol HCl [Ultram] 50 mg PO TID PRN 05/23/18 [History] Rivaroxaban [Xarelto] 20 mg PO DAILY #30 tablet 05/25/18 [Rx] Allergies/Adverse Reactions: 3 Allergy/AdvReac Type Severity Reaction Status Date / Time No Known Allergies Allergy Verified 05/22/18 08:39 - Respiratory Orders Smoking Cessation: Smoking cessation has been advised. For more information, call the [place] Tobacco Quit Line at 2-369-GNVCNOW. CERTIFICATION: I certify that the transfer of the above named patient to an Extended Care Facility is necessary for the continuing treatment of the diagnosis listed. The above information is true and accurate reflection of patient's current condition. Confidential - Redisclosure prohibited without a patient's written consent.
[2018-05-27] MEDS: Ipratropium/Albuterol Neb 3 ML IH SCH ×4 (04:53→21:10)
[2018-05-27] MEDS: Budesonide/Formoterol 160/4.5 1 PUFF INH IH SCH ×2 (10:32→21:09)
--- NOTE | 2018-05-27 11:45 | Internal Med Progress Note ---
Hospitalist Progress Note - Encounter Date of Encounter: 05/27/18 Time of Encounter: 09:00 - Subjective Interval History: Patient is ready to be discharged. In no acute distress. No further worsening shortness of breath. Vitals are stable. Waiting for placement. - Exam Vitals: Temp Pulse Resp BP Pulse Ox 98.1 F 96 20 110/79 94 05/27/18 10:52 05/27/18 10:52 05/27/18 10:52 05/27/18 10:52 05/27/18 10:52 Exam: Patient is awake alert, oriented 3, in no acute distress. HEENT: NC/AT, PERRL Neck: Supple, no LAD Lungs: CTA, no wheezing Heart: S1S2, RRR Abd: Soft, NT, BS normal. Ext: ROM wnl, mild b/l pedal edema Neuro: AAO x 3, no focal neuro deficit - Assessment and Plan (1) Bilateral pneumonia Current Visit: Yes Status: Acute Assessment and Plan: Patient finished course of Abx White count improved - 10.0 today (2) Elevated troponin Current Visit: Yes Status: Acute Assessment and Plan: 2/2 to PE Patient on xarelto 15 mg BID for 21 days, then switch to xarelto 20 mg daily indefinitely (3) Hyponatremia Current Visit: Yes Status: Acute Assessment and Plan: Resolved (4) CHF exacerbation Current Visit: Yes Status: Acute Assessment and Plan: Improved, appears reach her baseline. Patient on home lasix 20 mg PO BID (5) Chronic venous insufficiency Current Visit: Yes Status: Chronic Assessment and Plan: Wound care on consult (6) Decubital ulcer Current Visit: Yes Status: Chronic Assessment and Plan: Wound care on consult (7) Acute on chronic respiratory failure with hypoxia and hypercapnia Current Visit: Yes Status: Acute Assessment and Plan: Associated hypoxia and chronic hypercapnia with compensatory metabolic alkalosis secondary to bilateral pulmonary emboli, pulm HTN, and COPD Patient is currently on 1-2L NC No current home oxygen. Patient to have evaluation for home oxygen F/u outpatient for polysomnography evaluation (8) Pulmonary hypertension Current Visit: Yes Status: Acute Assessment and Plan: WHO group 4 Secondary to chronic thromboembolic disease Echo showed RV is moderately dilated Switched patient to home PO lasix Start patient on outpatient home O2 1-4L Patient started on xarelto 15 mg BID PO for 21 days, then switch to 20 mg daily PO indefinitely (9) Pulmonary embolism and infarction Current Visit: Yes Status: Acute Assessment and Plan: Submassive bilateral PE, most likely chronic, with chronic thromboembolic pulmonary hypertension. - On oxygen therapy and xarelto for anticoagulation. - Plan to discharge patient to [facility]. Patient will follow-up pulmonology as outpatient. - Time Spent with Patient Total time spent is greater than 50% in coordination of care (as documented) at patient's floor/unit and/or counseling patient: 25 min 25 - 35 minutes Plan of Care Discussed with: patient Internal Medicine: Result - Labs CBC & Chem 7: 05/26/18 01:13 05/26/18 01:13 - ABG Interpretation ABG results: ABG ABG pH 7.31 pH Units (7.32-7.45) L 05/23/18 21:32 ABG pCO2 73 mmHg (35-45) H* 05/23/18 21:32 ABG pO2 104 mmHg (85-104) 05/23/18 21:32 ABG O2 Saturation 97 % (95-98) 05/23/18 21:32 PT/INR, D-dimer PT 13.8 Seconds (9.4-12.1) H 05/25/18 01:28 Consult Discharge Plan - Plan Referrals: Isatu Shultz CNP [Primary Care Provider] - Prescriptions: Rivaroxaban [Xarelto] 15 mg PO BID #42 tablet Rivaroxaban [Xarelto] 20 mg PO DAILY #30 tablet (1) Bilateral pneumonia Qualifiers: Pneumonia type: due to unspecified organism Lung location: unspecified part of lung Qualified Code(s): J18.9 - Pneumonia, unspecified organism (4) CHF exacerbation Qualifiers: Heart failure type: diastolic Qualified Code(s): I50.33 - Acute on chronic diastolic (congestive) heart failure (6) Decubital ulcer Qualifiers: Pressure injury location: buttock Pressure injury stage: unspecified pressure injury stage Qualified Code(s): L89.309 - Pressure ulcer of unspecified buttock, unspecified stage
[2018-05-27] MEDS: Furosemide 20 MG TABLET PO SCH ×2 (11:47→17:35)
[2018-05-27] MEDS: cefTRIAXone 1,000 MG in Water for inj. (sterile) 20 ML 10 ML IVP SCH (11:47)
[2018-05-27] MEDS: Nicotine 21 MG PATCH.TD24 TD SCH (11:49)
[2018-05-27] MEDS: Aspirin 81 MG TAB.CHEW PO SCH (11:49)
[2018-05-27] MEDS: *HR* Rivaroxaban 15 MG TABLET PO SCH ×2 (11:50→21:00)
[2018-05-28] MEDS: Ipratropium/Albuterol Neb 3 ML IH SCH (05:09)
[2018-05-28] MEDS ORDERED: Albuterol 2.5 MG/3 ML NEBULIZER IH PRN (09:41)
[2018-05-28] MEDS: Budesonide/Formoterol 160/4.5 1 PUFF INH IH SCH ×2 (09:45→22:03)
[2018-05-28] MEDS: Tiotropium 18 MCG inhalation IH SCH ×2 (09:46→10:01)
[2018-05-28] MEDS: Nicotine 21 MG PATCH.TD24 TD SCH (10:00)
[2018-05-28] MEDS: Furosemide 20 MG TABLET PO SCH ×2 (10:00→16:26)
[2018-05-28] MEDS: *HR* Rivaroxaban 15 MG TABLET PO SCH ×2 (10:00→23:13)
[2018-05-28] MEDS: Aspirin 81 MG TAB.CHEW PO SCH (10:00)
[2018-05-28] MEDS: Bumetanide 1 MG TABLET PO SCH ×2 (16:28)
[2018-05-29] MEDS: Nicotine 21 MG PATCH.TD24 TD SCH (08:03)
[2018-05-29] MEDS: Bumetanide 1 MG TABLET PO SCH (08:04)
[2018-05-29] MEDS: Furosemide 20 MG TABLET PO SCH (08:04)
[2018-05-29] MEDS: *HR* Rivaroxaban 15 MG TABLET PO SCH (08:04)
[2018-05-29] MEDS: Aspirin 81 MG TAB.CHEW PO SCH (08:04)
--- NOTE | 2018-05-29 10:29 | Event Note ---
<Gray Ornelas S - Last Filed: 05/29/18 10:24> Date of Encounter: 05/29/18 Time of Encounter: 10:24 Patient is waiting on placement for rehab. She wants to go to [place]. SS noted the facility don't do insurance authorization on weekends. Patient's lisinopril was decreased to 2.5 mg daily for 30 days, and her metoprolol was decreased to 25 mg BID for 30 days. I ordered a 6 min walk test to see if she qualifies for home O2. Gray Ornelas DO - PGY1 <Marylin Peters - Last Filed: 05/29/18 13:07> Date of Encounter: 05/29/18 I have seen and examined this patient independently. I have discussed with resident physician Dr. Ornelas regarding the management plan. Agree with the documentation. I will update discharge summary for the change of medication.
[2018-05-29] MEDS: Tiotropium 18 MCG inhalation IH SCH (10:37)
[2018-05-29] MEDS: Budesonide/Formoterol 160/4.5 1 PUFF INH IH SCH (10:37)
[2018-05-29 11:36] VITALS: BP 93/57
[2018-06-16] MEDS ORDERED: *HR* Rivaroxaban 10 MG TABLET PO SCH (17:00)
== END 2018-05-29 14:06 | DRG 134 ==
LOC: 3ANU → 2NENU 17:18
PROVIDERS: ADMIT Internal Medicine; ATTEND Internal Medicine

== ENCOUNTER 2018-07-20 15:17 | Observation (INO) ==
[2018-07-20] MEDS ORDERED: Isovue-370 500 ML INFUS..BTL IV ONE (15:28)
[2018-07-20 16:00] LABS: Basophils % 0.4 %; Eosinophils # 0.2 K/mcL (0.0-0.6); Eosinophils % 2.1 %; Hematocrit 28.9 % (35.3-44.9); Hemoglobin 9.3 g/dL (11.5-15.4); Immature Granulocytes % 0.4 % (0-4); Lymphocytes # 1.8 K/mcL (0.6-4.6); Lymphocytes % 21.9 %; Mean Corpuscular HGB Conc 32.2 g/dL (31.6-35.5); Mean Corpuscular Hemoglobin 27.3 pg (28.0-33.3); Mean Corpuscular Volume 84.8 fL (83.0-100.0); Mean Platelet Volume 10.4 fL (9.4-12.4); Monocytes # 0.4 K/mcL (0.0-1.3); Monocytes % 4.7 %; Neutrophils # 5.7 K/mcL (1.6-8.9); Platelet Count 206 K/mcL (140-400); Red Blood Count 3.41 M/mcL (3.82-4.97); Red Cell Distribution Width 18.7 % (11.5-14.5); Segmented Neutrophils % 70.5 %
[2018-07-20 16:20] LABS: BUN/Creatinine Ratio 36 (6-26); Blood Urea Nitrogen 40 mg/dL (8-23); Calcium 9.2 mg/dL (8.6-10.3); Carbon Dioxide 33 mEq/L (23-29); Chloride 90 mEq/L (98-107); Glucose 143 mg/dL (70-105); Osmolality,Calculated 282 (280-300); Potassium 3.7 mEq/L (3.5-5.1); Sodium 130 mEq/L (136-145); Troponin I < 0.03 ng/mL (< 0.04); eGFR For African Americans > 60 (> 60); eGFR For Non-African Americans 50 (> 60)
[2018-07-20 16:23] LABS: INR 1.4; Prothrombin Time 15.4 Seconds (9.4-12.1)
[2018-07-20] MEDS ORDERED: 0.9 % Sodium Chloride 1,000 ML IVC ONE (16:29)
[2018-07-20] MEDS ORDERED: Pantoprazole 40 MG VIAL IVP SCH (18:30)
[2018-07-20] MEDS ORDERED: Naloxone 0.4 MG/ML INJ IVP PRN (20:55)
[2018-07-20] MEDS ORDERED: Nitroglycerin 0.4 MG TAB.SUBL SL SCH (21:00)
[2018-07-20] MEDS: Pantoprazole 40 MG VIAL IVP SCH (21:21)
[2018-07-20] MEDS ORDERED: 0.9 % Sodium Chloride 1,000 ML IVC SCH ×2 (22:15→23:30)
[2018-07-20] MEDS: Gabapentin 100 MG CAPSULE PO SCH (23:26)
[2018-07-21 00:45] LABS: Basophils % 0.5 %; Eosinophils # 0.1 K/mcL (0.0-0.6); Eosinophils % 1.6 %; Hematocrit 28.4 % (35.3-44.9); Hemoglobin 9.1 g/dL (11.5-15.4); Immature Granulocytes % 0.3 % (0-4); Lymphocytes # 2.3 K/mcL (0.6-4.6); Lymphocytes % 26.1 %; Mean Corpuscular Hemoglobin 27.2 pg (28.0-33.3); Mean Corpuscular Volume 84.8 fL (83.0-100.0); Mean Platelet Volume 10.2 fL (9.4-12.4); Monocytes # 0.6 K/mcL (0.0-1.3); Monocytes % 6.7 %; Neutrophils # 5.7 K/mcL (1.6-8.9); Platelet Count 202 K/mcL (140-400); Red Blood Count 3.35 M/mcL (3.82-4.97); Red Cell Distribution Width 18.5 % (11.5-14.5); Segmented Neutrophils % 64.8 %; White Blood Count 8.8 K/mcL (4.3-11.1)
[2018-07-21 00:46] LABS: Retculocyte # 0.05 M/mcL (0.05-0.10); Reticulocyte % 1.6 % (1.6-2.8)
[2018-07-21 01:07] LABS: BUN/Creatinine Ratio 34 (6-26); Blood Urea Nitrogen 31 mg/dL (8-23); Calcium 8.8 mg/dL (8.6-10.3); Carbon Dioxide 31 mEq/L (23-29); Chloride 94 mEq/L (98-107); Glucose 115 mg/dL (70-105); Osmolality,Calculated 279 (280-300); Potassium 3.9 mEq/L (3.5-5.1); Sodium 131 mEq/L (136-145); eGFR For African Americans > 60 (> 60); eGFR For Non-African Americans > 60 (> 60)
[2018-07-21 01:09] LABS: % Iron Saturation 25 % (15-50); Iron 68 mcg/dL (50-170); Transferrin 194 mg/dL (203-362)
[2018-07-21 01:28] LABS: Ferritin 261 ng/mL (10-120)
[2018-07-21 07:57] LABS: Basophils # 0.1 K/mcL (0.0-0.2); Basophils % 0.7 %; Eosinophils # 0.1 K/mcL (0.0-0.6); Eosinophils % 1.4 %; Hematocrit 30.5 % (35.3-44.9); Hemoglobin 9.6 g/dL (11.5-15.4); Immature Granulocytes % 0.3 % (0-4); Lymphocytes # 1.5 K/mcL (0.6-4.6); Lymphocytes % 20.3 %; Mean Corpuscular HGB Conc 31.5 g/dL (31.6-35.5); Mean Corpuscular Hemoglobin 26.8 pg (28.0-33.3); Mean Corpuscular Volume 85.2 fL (83.0-100.0); Mean Platelet Volume 9.8 fL (9.4-12.4); Monocytes # 0.4 K/mcL (0.0-1.3); Monocytes % 5.7 %; Neutrophils # 5.2 K/mcL (1.6-8.9); Platelet Count 198 K/mcL (140-400); Red Blood Count 3.58 M/mcL (3.82-4.97); Red Cell Distribution Width 18.6 % (11.5-14.5); Segmented Neutrophils % 71.6 %; White Blood Count 7.3 K/mcL (4.3-11.1)
[2018-07-21] MEDS: Tiotropium 18 MCG inhalation IH SCH (08:12)
[2018-07-21] MEDS: Gabapentin 100 MG CAPSULE PO SCH ×3 (09:26→20:45)
[2018-07-21] MEDS: Pantoprazole 40 MG VIAL IVP SCH ×2 (09:26→20:46)
[2018-07-21] MEDS: Nicotine 14 MG PATCH.TD24 TD SCH (09:26)
[2018-07-22] MEDS: Tiotropium 18 MCG inhalation IH SCH (08:10)
[2018-07-22] MEDS: Nicotine 14 MG PATCH.TD24 TD SCH (08:32)
[2018-07-22] MEDS: Gabapentin 100 MG CAPSULE PO SCH ×3 (08:32→21:05)
[2018-07-22] MEDS: Pantoprazole 40 MG VIAL IVP SCH ×2 (08:34→21:05)
[2018-07-22] MEDS ORDERED: Ringers Solution, Lactated 1,000 ML IVC SCH (12:30)
[2018-07-22] MEDS ORDERED: *HR* Etomidate 40 MG/20 ML VIAL IVP ONE (13:30)
[2018-07-22] MEDS ORDERED: Lidocaine -MPF 2% 2 ML VIAL ONE (13:30)
[2018-07-23 03:28] LABS: Basophils # 0.1 K/mcL (0.0-0.2); Basophils % 0.8 %; Eosinophils # 0.3 K/mcL (0.0-0.6); Eosinophils % 4.1 %; Hematocrit 28.1 % (35.3-44.9); Hemoglobin 8.9 g/dL (11.5-15.4); Immature Granulocytes % 0.1 % (0-4); Lymphocytes # 1.9 K/mcL (0.6-4.6); Lymphocytes % 26.6 %; Mean Corpuscular HGB Conc 31.7 g/dL (31.6-35.5); Mean Corpuscular Hemoglobin 27.2 pg (28.0-33.3); Mean Corpuscular Volume 85.9 fL (83.0-100.0); Mean Platelet Volume 10.2 fL (9.4-12.4); Monocytes # 0.6 K/mcL (0.0-1.3); Monocytes % 8.5 %; Neutrophils # 4.4 K/mcL (1.6-8.9); Platelet Count 192 K/mcL (140-400); Red Blood Count 3.27 M/mcL (3.82-4.97); Red Cell Distribution Width 18.8 % (11.5-14.5); Segmented Neutrophils % 59.9 %; White Blood Count 7.3 K/mcL (4.3-11.1)
[2018-07-23 03:47] LABS: BUN/Creatinine Ratio 16 (6-26); Blood Urea Nitrogen 12 mg/dL (8-23); Carbon Dioxide 30 mEq/L (23-29); Chloride 100 mEq/L (98-107); Glucose 98 mg/dL (70-105); Osmolality,Calculated 280 (280-300); Potassium 4.2 mEq/L (3.5-5.1); Sodium 135 mEq/L (136-145); eGFR For African Americans > 60 (> 60); eGFR For Non-African Americans > 60 (> 60)
[2018-07-23] MEDS: Gabapentin 100 MG CAPSULE PO SCH ×3 (09:14→21:13)
[2018-07-23] MEDS: Pantoprazole 40 MG VIAL IVP SCH ×2 (09:14→21:13)
[2018-07-23] MEDS: Nicotine 14 MG PATCH.TD24 TD SCH (09:14)
[2018-07-23] MEDS: Tiotropium 18 MCG inhalation IH SCH (11:11)
[2018-07-24 04:06] LABS: Basophils # 0.1 K/mcL (0.0-0.2); Basophils % 0.6 %; Eosinophils # 0.4 K/mcL (0.0-0.6); Eosinophils % 4.9 %; Hematocrit 29.7 % (35.3-44.9); Hemoglobin 9.3 g/dL (11.5-15.4); Immature Granulocytes % 0.4 % (0-4); Lymphocytes # 1.9 K/mcL (0.6-4.6); Lymphocytes % 23.8 %; Mean Corpuscular HGB Conc 31.3 g/dL (31.6-35.5); Mean Corpuscular Hemoglobin 27.6 pg (28.0-33.3); Mean Corpuscular Volume 88.1 fL (83.0-100.0); Mean Platelet Volume 10.2 fL (9.4-12.4); Monocytes # 0.7 K/mcL (0.0-1.3); Neutrophils # 4.9 K/mcL (1.6-8.9); Platelet Count 184 K/mcL (140-400); Red Blood Count 3.37 M/mcL (3.82-4.97); Red Cell Distribution Width 19.1 % (11.5-14.5); Segmented Neutrophils % 61.3 %
[2018-07-24 04:30] LABS: BUN/Creatinine Ratio 18 (6-26); Blood Urea Nitrogen 12 mg/dL (8-23); Calcium 9.2 mg/dL (8.6-10.3); Carbon Dioxide 30 mEq/L (23-29); Chloride 101 mEq/L (98-107); Glucose 116 mg/dL (70-105); Osmolality,Calculated 281 (280-300); Potassium 4.7 mEq/L (3.5-5.1); Sodium 135 mEq/L (136-145); eGFR For African Americans > 60 (> 60); eGFR For Non-African Americans > 60 (> 60)
[2018-07-24] MEDS: Nicotine 14 MG PATCH.TD24 TD SCH (09:49)
[2018-07-24] MEDS: Gabapentin 100 MG CAPSULE PO SCH ×3 (09:50→22:48)
[2018-07-24] MEDS: Tiotropium 18 MCG inhalation IH SCH (10:44)
[2018-07-24 16:23] LABS: INR 1.1; Prothrombin Time 12.8 Seconds (9.4-12.1)
[2018-07-24] MEDS ORDERED: Warfarin perPT PO PRN (18:00)
[2018-07-24] MEDS ORDERED: *HR* Warfarin 5 MG TABLET PO ONE (18:00)
[2018-07-25 08:20] LABS: INR 1.2; Prothrombin Time 13.4 Seconds (9.4-12.1)
[2018-07-25 08:43] LABS: Hematocrit 28.2 % (35.3-44.9)
[2018-07-25] MEDS: Tiotropium 18 MCG inhalation IH SCH (08:45)
[2018-07-25] MEDS: Nicotine 14 MG PATCH.TD24 TD SCH (09:30)
[2018-07-25] MEDS: Gabapentin 100 MG CAPSULE PO SCH ×3 (09:30→20:14)
[2018-07-25] MEDS ORDERED: *HR* Warfarin 5 MG TABLET PO ONE (18:00)
[2018-07-25] MEDS: *HR* Enoxaparin 150 MG/ML SYRINGE SQ SCH (18:04)
[2018-07-26] MEDS: *HR* Enoxaparin 150 MG/ML SYRINGE SQ SCH (04:42)
[2018-07-26 05:43] LABS: Hematocrit 29.9 % (35.3-44.9); Hemoglobin 9.4 g/dL (11.5-15.4)
[2018-07-26 05:52] LABS: INR 1.2
[2018-07-26] MEDS: Tiotropium 18 MCG inhalation IH SCH (07:54)
[2018-07-26] MEDS: Nicotine 14 MG PATCH.TD24 TD SCH (09:37)
[2018-07-26] MEDS: Gabapentin 100 MG CAPSULE PO SCH (09:37)
[2018-07-26 11:14] VITALS: BP 125/83
[2018-07-26] MEDS ORDERED: *HR* Warfarin 5 MG TABLET PO ONE (12:48)
== END 2018-07-26 14:29 ==
LOC: EMEROOARM 15:17 → 2NENU 15:17 → SUATTDRO 18:38 → 2NENU 18:54
PROVIDERS: ADMIT Internal Medicine; ATTEND Internal Medicine